=== PATIENT | female | born 1975 | race American Indian/Alaskan Native ===

== ENCOUNTER 2018-08-28 05:12 | Emergency (ER) | payer MEDICAID, OTHER, SELFPAY ==
--- NOTE | 2018-08-28 05:15 | ED.DENTAL ---
HPI - Dental/Oral General Chief complaint: Dental/Oral Stated complaint: tooth ache x1 day Time Seen by Provider: 08/28/18 05:15 Source: patient Mode of arrival: ambulatory Limitations: no limitations History of Present Illness HPI Narrative: 43-year-old insulin-dependent diabetic here for evaluation of left lower tooth pain. She states this started last evening. No known trauma. States it has continued since then. Tried ibuprofen prior to coming to arrival. Related Data Home Medications Medication Instructions Recorded Confirmed insulin glargine [Lantus U-100 135 unit SQ Q DAY #0 10/11/11 Insulin] Previous Rx's Medication Instructions Recorded hydrocodone-acetaminophen 0 tab PO Q6HP PRN #15 tab 07/03/17 clindamycin HCl 300 mg PO QID 10 Days #40 cap 08/28/18 hydrocodone-acetaminophen [[place]] 1 tab PO Q4-6H PRN #7 tab 08/28/18 Allergies Allergy/AdvReac Type Severity Reaction Status Date / Time glyburide [GLYBURIDE] Allergy Unknown Unverified 03/02/18 12:52 lisinopril [LISINOPRIL] Allergy Unknown Unverified 03/02/18 12:52 metformin [METFORMIN] Allergy Unknown Unverified 03/02/18 12:52 pseudoephedrine Allergy Unknown Unverified 03/02/18 12:52 [PSEUDOEPHEDRINE] Review of Systems Constitutional Denies fever(s) ENT Ears, Nose, Mouth, and Throat: Reports mouth pain Comments: dental pain Respiratory Denies cough Integumentary/Breasts Denies lesions and Denies rash Hematologic/Lymphatic Denies easy bleeding and Denies easy bruising [facility] Medical History Diabetes (Acute) Surgical History No pertinent past surgical history (Acute) Exam Initial Vital Signs Initial Vital Signs: Vital Signs Temperature 98.8 F 08/28/18 05:21 Pulse Rate 72 08/28/18 05:21 Respiratory Rate 18 08/28/18 05:21 Blood Pressure 180/79 H 08/28/18 05:21 Pulse Oximetry 100 08/28/18 05:21 Const General: cooperative, healthy appearing, comfortable, well developed, well groomed and No acute distress Orientation: alert, awake and oriented x3 HENMT Ears: TM normal on the left Nose: external nose normal Face and sinus: normal facial exam Mouth: oral mucosae normal, lip normal, tongue normal, oropharynx normal and No drooling Teeth and gingiva: other ( left tooth #18 fractured) Resp Effort & Inspection: normal respiratory effort Skin Lesions: no lesions Rashes: no rashes Neuro General: alert, awake and oriented x3 Psych Appearance: grossly normal and well kempt Course Vital Signs - 8 hr 08/28/18 05:21 Temperature 98.8 F Pulse Rate 72 Respiratory Rate 18 Blood Pressure 180/79 H Pulse Oximetry 100 MDM - Dental/Oral MDM Narrative Medical decision making narrative: patient with fractured tooth 18. No defined abscess seen on my exam today. I offered the patient dental injection which she declined. I did place a temporary filling. I informed the patient that this may come out. Informed her that she needed to contact her dentist to get an for definitive treatment. Will send home with antibiotics to prevent any sort of infection given her history of diabetes. Was also given pain medications. She was given return precautions. Discharge Plan Departure Patient Disposition: Home Clinical Impression: Pain, dental Instructions: DI for Dental Pain Activity Restrictions/Additional Instructions: you need to fill the prescriptions that you were given today and start taking them as directed. you need to contact your dentist tomorrow to get in for a follow-up. Return to the emergency department for any new or worsening symptoms Prescriptions: New clindamycin HCl 300 mg capsule 300 mg PO QID 10 Days Qty: 40 RF: 0 hydrocodone-acetaminophen [[place]] 5-325 mg tablet 1 tab PO Q4-6H PRN (Reason: pain) Qty: 7 RF: 0 No Action insulin glargine [Lantus U-100 Insulin] 100 UNIT/1 ML solution 135 unit SQ Q DAY Qty: 0 RF: 0 hydrocodone-acetaminophen 5 MG/325 MG tablet PO Q6HP PRNQty: 15 RF: 0
[2018-08-28 05:21] VITALS: BP 180/79; PULSE 72; RESP 18; TEMP 37.1; O2SAT 100
[2018-08-28] MEDS: HYDROCODONE/ACET 5/325 PREPACK 1 BOTTLE MISC (05:36)
== END 2018-08-28 05:39 | disposition home or self-care (01) ==
PROVIDERS: Emergency Provider Emergency Medicine
DX: K08.89 Other specified disorders of teeth and supporting structures (principal)
CPT/HCPCS: 99282

== ENCOUNTER 2019-05-25 21:16 | Emergency (ER) | payer MEDICAID, OTHER, SELFPAY ==
[2019-05-25 21:27] VITALS: BP 162/73; PULSE 96; RESP 17; TEMP 36.9; O2SAT 100
[2019-05-25] MEDS: AMOXICILLIN/CLAV 875/125 MG 1 TAB PO (21:47)
[2019-05-25 21:50] VITALS: BP 163/78; PULSE 92; RESP 17; O2SAT 97
--- NOTE | 2019-05-26 03:13 | ED_ITS ---
HPI - Ear Problem General Chief complaint: Ear Stated complaint: thinks she has an ear ache in right ear x1 day Time Seen by Provider: 05/25/19 21:20 Source: patient Mode of arrival: ambulatory Limitations: no limitations History of Present Illness HPI Narrative: 44-year-old female daily smoker, diabetic presents with 1 day of gradually worsening right ear pain. She denies runny nose, sneezing or cough. She has subjective fever. She denies nausea, vomiting. She denies any injury. She denies recent swimming. She has decreased ability to hear from that right ear. She denies any discharge, recent flights or diving. MD Complaint: ear pain Location: right ear Duration: constant Severity: moderate Relieving factors: nothing Exacerbating factors: nothing Discharge from ear: no Associated symptoms ear: fever Treatment prior to arrival: none Related Data Home Medications Medication Instructions Recorded Confirmed insulin glargine [Lantus U-100 135 unit SQ Q DAY #0 10/11/11 Insulin] Previous Rx's Medication Instructions Recorded hydrocodone-acetaminophen 0 tab PO Q6HP PRN #15 tab 07/03/17 hydrocodone-acetaminophen [[place]] 1 tab PO Q4-6H PRN #7 tab 08/28/18 amoxicillin-pot clavulanate 1 tab PO BID #20 tab 05/25/19 [Augmentin] Allergies Allergy/AdvReac Type Severity Reaction Status Date / Time glyburide [GLYBURIDE] Allergy Unknown Unverified 03/02/18 12:52 lisinopril [LISINOPRIL] Allergy Unknown Unverified 03/02/18 12:52 metformin [METFORMIN] Allergy Unknown Unverified 03/02/18 12:52 pseudoephedrine Allergy Unknown Unverified 03/02/18 12:52 [PSEUDOEPHEDRINE] Review of Systems Constitutional Reports chills, Reports fever(s), Denies lethargy and Denies weakness Eyes Denies change in vision, Denies eye discharge, Denies irritation and Denies loss of vision ENT Ears, Nose, Mouth, and Throat: Denies change in voice, Reports otalgia, Denies neck pain and Denies sore throat Cardiovascular Denies chest pain, Denies irregular heart rhythm, Denies lightheadedness, Denies palpitations, Denies dyspnea, Denies dyspnea on exertion and Denies orthopnea Respiratory Denies cough, Denies dyspnea, Denies dyspnea on exertion and Denies wheezing Gastrointestinal Gastrointestinal: Denies abdominal pain, Denies change in bowel habits, Denies diarrhea, Denies nausea and Denies vomiting Genitourinary Denies hematuria, Denies flank pain, Denies urinary incontinence and Denies urinary urgency Musculoskeletal Denies neck pain Integumentary/Breasts Denies pruritus, Denies erythema, Denies rash and Denies wounds Neurologic Denies confusion, Denies loss of vision and Denies weakness Psychiatric Denies anxiety, Denies confusion, Denies depression, Denies homicidal ideation and Denies suicidal ideation Endocrine Denies palpitations Hematologic/Lymphatic Denies easy bruising Allergic/Immunologic Denies wheezing [facility] Medical History Diabetes (Acute) Surgical History No pertinent past surgical history (Acute) Social History Smoking Status: Current every day smoker Social History Smoking Status: Current every day smoker Exam Narrative Exam Narrative: GEN: AOx3 and in mild distress, rubbing her ear, obviously uncomfortable EYES: Pupils are equal, round, and reactive to light and accommodation. Extraoccular muscles are intact bilaterally. There is no subconjunctival hemorrhage or exudate. ENT: Bilateral nares clear without drainage. Left tympanic membrane clear with normal landmarks. Right tympanic membrane with yellowish effusion and mild bulge with minimal erythema consistent with suppurative effusion CHEST: Lungs are clear to auscultation bilaterally and free of wheezes, rales, or rhonchi. Heart rate is regular rhythm, there are no murmurs, clicks, rubs, or gallops. There is no chest wall tenderness. ABD: Abdomen is soft and nontender. There is no guarding or rebound. Bowel sounds are normal in all 4 quadrants. There is no mass or organomegaly. EXT: Full painless ROM of all extremities with no loss of sensation or strength. SKIN: Warm, pink, and dry. No erythema or rash Initial Vital Signs Initial Vital Signs: Vital Signs Temperature 98.4 F 05/25/19 21:27 Pulse Rate 96 H 05/25/19 21:27 Respiratory Rate 17 05/25/19 21:27 Blood Pressure 162/73 H 05/25/19 21:27 Pulse Oximetry 100 05/25/19 21:27 Course Orders Ordered: Discontinued Medications Amoxicillin/Clavulanate Potassium (Augmentin 875-125 Mg) 1 tab PO NOW ONE Stop: 05/25/19 21:41 Last Admin: 05/25/19 21:47 Dose: 1 tab Vital Signs - 8 hr 05/25/19 21:27 05/25/19 21:50 Temperature 98.4 F Pulse Rate 96 H 92 H Respiratory Rate 17 17 Blood Pressure 163/78 H Blood Pressure [Left Arm] 162/73 H Pulse Oximetry 100 97 Discharge Plan Departure Patient Disposition: Home Clinical Impression: Otitis media Qualifiers: Otitis media type: suppurative Chronicity: acute Laterality: right Recurrence: non-recurrent Spontaneous tympanic membrane rupture: without spontaneous rupture Qualified Code(s): H66.001 - Acute suppurative otitis media without spontaneous rupture of ear drum, right ear Discharge Date/Time: 05/25/19 21:50 Interventions: ED Discharge Assessment Last Done: 05/25/19 21:50 Instructions: Middle Ear Infection Activity Restrictions/Additional Instructions: *You have been diagnosed with [acute right-sided suppurative ] *What to do: *Take medications as directed: Your antibiotics have been electronically transmitted to [facility] at your request *Follow up with your primary care provider in 2-3 days, call for an appointment. Let them know you were seen in the Emergency Department and that we ask that you be seen in follow up *Return to ER if you should have any new, worsening or concerning symptoms Prescriptions: New amoxicillin-pot clavulanate [Augmentin] 875-125 mg tablet 1 tab PO BID Qty: 20 RF: 0 No Action insulin glargine [Lantus U-100 Insulin] 100 UNIT/1 ML solution 135 unit SQ Q DAY Qty: 0 RF: 0 hydrocodone-acetaminophen 5 MG/325 MG tablet PO Q6HP PRNQty: 15 RF: 0 hydrocodone-acetaminophen [[place]] 5-325 mg tablet 1 tab PO Q4-6H PRN (Reason: pain) Qty: 7 RF: 0
== END 2019-05-25 21:50 | disposition home or self-care (01) ==
PROVIDERS: Emergency Provider Emergency Medicine
DX: H66.001 Acute suppurative otitis media without spontaneous rupture of ear drum, right ear (principal)
CPT/HCPCS: 99282; 99283

== ENCOUNTER → 2020-05-20 13:54 | Outpatient (CLI) | payer MEDICAID, OTHER, SELFPAY ==
--- NOTE | 2020-05-20 | DI.RAD.S_ITS ---
PROCEDURE: XR LUMBAR SPINE 2-3V INDICATIONS: Low back pain TECHNIQUE: 3 views of the lumbar spine were acquired. COMPARISON: None. FINDINGS: Bones: 5 [id number]-[id number] vertebrae are present. There is normal bony alignment. No vertebral body compression fractures. No suspicious bony lesions. Endplate osteophytes indicating very mild early disc degeneration, most notably at the L5-S1 level. Soft tissues: Overlying bowel gas pattern is normal. No suspicious soft tissue calcifications. IMPRESSION: Endplate osteophytes indicating early mild multilevel disc degeneration. Dictated by: Cristhian BOND Interpreted: Ashanti Ashton MD on 05/20/2020 at 17:16 Approved by: Ashanti Ashton M.D. on 05/20/2020 at 17:44
== END ==
PROVIDERS: PCP Physician Assistant; Referring Provider Physician Assistant; Visit Provider Physician Assistant
DX: M54.5 Low back pain (principal)
CPT/HCPCS: 72100

== ENCOUNTER → 2021-01-15 17:07 | Outpatient (CLI) | payer MEDICAID, OTHER, SELFPAY ==
[2021-01-15 18:37] LABS: Hemoglobin A1C% w Est Avg Glu 12.6 % (4.0-6.0)
[2021-01-15 18:48] LABS: Alanine Aminotransferase 18 IU/L (<35); Albumin 3.6 g/dL (3.5-5.0); Albumin Globulin Ratio 1.1 (1.0-2.8); Alkaline Phosphatase 102 U/L (38-126); Aspartate Aminotransferase 20 IU/L (14-36); BUN Creatinine Ratio 17.5 (6-22); Bilirubin Total 0.2 mg/dL (0.2-1.3); Blood Urea Nitrogen 11 mg/dL (7-17); Calcium 7.8 mg/dL (8.4-10.2); Carbon Dioxide 23 mmol/L (22-32); Chloride 101 mmol/L (98-107); Cholesterol 141 mg/dL (140-199); Estimated Glomerular Filt Rate > 60.0 mL/min (>60); Globulin 3.2 g/dL (1.7-4.1); Glucose 450 mg/dL (70-100); HDL Cholesterol 40 mg/dL (40-60); HEMOLYSIS < 15 (0-50); LDL Cholesterol Calculated 71 mg/dL (<100); Potassium 4.2 mmol/L (3.4-5.1); Sodium 130 mmol/L (137-145); Total Protein 6.8 g/dL (6.3-8.2); Triglycerides 152 mg/dL (35-150)
== END ==
PROVIDERS: PCP Physician Assistant; Referring Provider Family Medicine; Visit Provider Family Medicine
DX: E11.3593 Type 2 diabetes mellitus with proliferative diabetic retinopathy without macular edema, bilateral (principal)
CPT/HCPCS: 36415; 80053; 80061; 83036

== ENCOUNTER → 2021-04-11 16:43 | Outpatient (CLI) | payer MEDICAID, OTHER, SELFPAY ==
[2021-04-11 17:15] LABS: Hematocrit 27.6 % (36-46); Mean Corpuscular Hemoglobin 17.5 PG (26-34); Mean Corpuscular Volume 60.3 fL (80-100); Platelet Count 476 X10^3/uL (150-400); Red Blood Cell Count 4.57 X10^6/uL (4.0-5.2); Red Cell Distribution Width 18.8 % (11.6-14.8); White Blood Cell Count 7.6 X10^3/uL (4.5-11.0)
[2021-04-11 17:23] LABS: Hemoglobin A1C% w Est Avg Glu 10.6 % (4.0-6.0)
[2021-04-11 17:33] LABS: BUN Creatinine Ratio 24.6 (6-22); Blood Urea Nitrogen 17 mg/dL (7-17); Calcium 8.7 mg/dL (8.4-10.2); Carbon Dioxide 27 mmol/L (22-32); Chloride 104 mmol/L (98-107); Estimated Glomerular Filt Rate > 60.0 mL/min (>60); Glucose 349 mg/dL (70-100); HEMOLYSIS < 15 (0-50); Potassium 4.6 mmol/L (3.4-5.1); Sodium 134 mmol/L (137-145)
== END ==
PROVIDERS: PCP Family Medicine; Referring Provider Family Medicine; Visit Provider Family Medicine
DX: E11.3513 Type 2 diabetes mellitus with proliferative diabetic retinopathy with macular edema, bilateral (principal); I10 Essential (primary) hypertension
CPT/HCPCS: 36415; 80048; 83036; 85027

== ENCOUNTER → 2021-05-16 09:39 | Outpatient (CLI) | payer MEDICAID, OTHER, SELFPAY ==
--- NOTE | 2021-05-16 09:40 | DI.US.S_ITS ---
PROCEDURE: US PELVIC COMPLETE INDICATIONS: DUB TECHNIQUE: Real-time scanning was performed of the pelvic organs, with image documentation. Additional endovaginal scanning was necessary due to incomplete visualization of the adnexal and endometrial structures by transabdominal scanning. COMPARISON: None. FINDINGS: Uterus: The uterus is anteverted. Uterus is normal in size at 9.2 x 5.0 x 6 point cm. The endometrium measures 7.4 mm in combined thickness. Ovaries: Right ovary is not identified and cannot be evaluated. Left ovary measures 3.5 x 2.0 x 3.6 centimeters. Small functional follicles noted in the left ovary which total number less than 12. Other: No pathologic free abdominal or pelvic fluid. IMPRESSION: 1. Uterus is sonographically normal. 2. Left ovary is sonographically normal. 3. Right ovary not visualized and cannot be evaluated. Dictated by: Diana Fregoso MD, PhD on 05/16/2021 at 14:54 Approved by: Diana Fregoso MD, PhD on 05/16/2021 at 15:03
== END ==
PROVIDERS: PCP Family Medicine; Referring Provider Family Medicine; Visit Provider Family Medicine
DX: N92.4 Excessive bleeding in the premenopausal period (principal)
CPT/HCPCS: 76830; 76856

== ENCOUNTER → 2021-10-29 14:39 | Outpatient (CLI) | payer MEDICAID, OTHER, SELFPAY ==
[2021-10-29 16:03] LABS: Add Manual Diff / Slide Review NO; Basophils Absolute Auto 100 /uL (0-100); Eosinophils Absolute Auto 400 /uL (0-450); Eosinophils Percent Auto 4.2 % (2-4); Hematocrit 32.9 % (36-46); Hemoglobin 9.7 g/dL (12.0-16.0); Lymphocytes Absolute Auto 2900 /uL (1100-4500); Mean Corpuscular HGB Conc 29.5 % (30-36); Mean Corpuscular Hemoglobin 18.5 PG (26-34); Mean Corpuscular Volume 62.9 fL (80-100); Monocytes Absolute Auto 600 /uL (0-900); Monocytes Percent Auto 6.6 % (3-14); Neutrophils Absolute Auto 4900 /uL (1500-7000); Neutrophils Percent Auto 55.2 % (50-75); Platelet Count 467 X10^3/uL (150-400); Red Blood Cell Count 5.23 X10^6/uL (4.0-5.2); White Blood Cell Count 8.9 X10^3/uL (4.5-11.0)
[2021-10-29 16:32] LABS: Anisocytosis 1+; Microcytosis 2+
[2021-10-29 16:57] LABS: Alanine Aminotransferase 19 IU/L (<35); Albumin 3.9 g/dL (3.5-5.0); Albumin Globulin Ratio 1.4 (1.0-2.8); Alkaline Phosphatase 85 U/L (38-126); Aspartate Aminotransferase 20 IU/L (14-36); Bilirubin Total 0.3 mg/dL (0.2-1.3); Blood Urea Nitrogen 11 mg/dL (7-17); Carbon Dioxide 26 mmol/L (22-32); Chloride 102 mmol/L (98-107); Estimated Glomerular Filt Rate > 60.0 mL/min (>60); Globulin 2.7 g/dL (1.7-4.1); Glucose 176 mg/dL (70-100); HEMOLYSIS < 15 (0-50); Potassium 4.6 mmol/L (3.4-5.1); Sodium 137 mmol/L (137-145); Total Protein 6.6 g/dL (6.3-8.2)
[2021-10-29 17:04] LABS: NT-proBNP (BNP-Adult 18+) 54 pg/mL (<125)
[2021-10-29 17:28] LABS: TSH w/ Reflex to FT4 1.92 uIU/mL (0.47-4.68)
[2021-10-29 20:00] LABS: Microalbumin Urine Random 6.8 mg/dL (0-1.6)
[2021-10-29 20:02] LABS: Creatinine Urine Random 42.8 mg/dL; Microalbumi Creatinin Ratio Ur 158.8 ug/mg CR (<30)
== END ==
PROVIDERS: PCP Family Medicine; Referring Provider Physician Assistant; Visit Provider Physician Assistant
DX: R06.00 Dyspnea, unspecified (principal); E11.3593 Type 2 diabetes mellitus with proliferative diabetic retinopathy without macular edema, bilateral
CPT/HCPCS: 36415; 80053; 82043; 82570; 83036; 83880; 84443; 85025

== ENCOUNTER 2021-11-24 13:35 | Emergency (ER) | payer MEDICAID, OTHER, SELFPAY ==
[2021-11-24] VITALS (10 sets, daily range): BP systolic 116–160; BP diastolic 64–73; PULSE 91–106; RESP 16–28; TEMP 36.5; O2SAT 98–100; BMI 48.0
--- NOTE | 2021-11-24 13:58 | DI.RAD.S_ITS ---
PROCEDURE: XR CHEST 1V INDICATIONS: shortness of breath TECHNIQUE: One view of the chest was acquired. COMPARISON: [facility], CHEST 2 VIEW, 10/11/2011, 22:17. [facility], CHEST 1 VIEW, 04/28/2016, 14:07. FINDINGS: Surgical changes and devices: None. Lungs and pleura: An incomplete inspiratory result is noted, causing a crowded appearance to the lung markings. No focal infiltrates are seen. No pneumothorax or significant pleural effusions are seen. Mediastinum: Mediastinal contours appear normal. Heart size is normal. Bones and chest wall: No suspicious bony lesions. Overlying soft tissues appear unremarkable. IMPRESSION: Portable chest within normal limits. Dictated by: Jared Neri M.D. on 11/24/2021 at 13:37 Approved by: Jared Neri M.D. on 11/24/2021 at 13:38
[2021-11-24 15:05] LABS: Add Manual Diff / Slide Review NO; Basophils Absolute Auto 100 /uL (0-100); Basophils Percent Auto 0.9 % (0-2); Eosinophils Absolute Auto 100 /uL (0-450); Eosinophils Percent Auto 1.7 % (2-4); Hematocrit 31.5 % (36-46); Hemoglobin 9.4 g/dL (12.0-16.0); Lymphocytes Absolute Auto 1900 /uL (1100-4500); Lymphocytes Percent Auto 25.8 % (25-40); Mean Corpuscular HGB Conc 29.8 % (30-36); Mean Corpuscular Hemoglobin 18.4 PG (26-34); Mean Corpuscular Volume 61.5 fL (80-100); Monocytes Absolute Auto 800 /uL (0-900); Monocytes Percent Auto 11.5 % (3-14); Neutrophils Absolute Auto 4300 /uL (1500-7000); Neutrophils Percent Auto 60.1 % (50-75); Platelet Count 476 X10^3/uL (150-400); Red Blood Cell Count 5.11 X10^6/uL (4.0-5.2); Red Cell Distribution Width 18.2 % (11.6-14.8); White Blood Cell Count 7.2 X10^3/uL (4.5-11.0)
[2021-11-24 15:12] LABS: Creatine Kinase 47 U/L (30-135); Lactate (Lactic Acid) 0.8 mmol/L (0.7-2.1)
[2021-11-24 15:21] LABS: Alanine Aminotransferase 19 IU/L (<35); Albumin 3.6 g/dL (3.5-5.0); Albumin Globulin Ratio 1.3 (1.0-2.8); Alkaline Phosphatase 85 U/L (38-126); Aspartate Aminotransferase 27 IU/L (14-36); BUN Creatinine Ratio 15.5 (6-22); Bilirubin Total 0.2 mg/dL (0.2-1.3); Blood Urea Nitrogen 11 mg/dL (7-17); Calcium 8.3 mg/dL (8.4-10.2); Carbon Dioxide 23 mmol/L (22-32); Chloride 103 mmol/L (98-107); Estimated Glomerular Filt Rate > 60.0 mL/min (>60); Globulin 2.8 g/dL (1.7-4.1); Glucose 258 mg/dL (70-100); HEMOLYSIS < 15 (0-50); Potassium 4.4 mmol/L (3.4-5.1); Sodium 133 mmol/L (137-145); Total Protein 6.4 g/dL (6.3-8.2)
[2021-11-24 15:24] LABS: Troponin I < 0.012 ng/mL (0.01-0.034)
[2021-11-24 15:39] LABS: Anisocytosis 2+; Microcytosis 3+; Poikilocytosis 1+
[2021-11-24 15:40] LABS: Hypochromasia 1+; Polychromasia 1+; Stomatocytes 1+
[2021-11-24 16:05] LABS: Bacteria Urine None Seen; Culture Indicated Urine Cult Not Indicated; RBC Urine None Seen (0-5/HPF); WBC Urine None Seen (0-5/HPF)
[2021-11-24 16:08] LABS: COVID19 -Nasal RAPID POSITIVE (Negative)
--- NOTE | 2021-11-24 16:36 | ED.GENADULT ---
HPI - General Adult General Chief complaint: Shortness of Breath/Dyspnea Stated complaint: Trouble Breathing,Coughing,Heart Problem Time Seen by Provider: 11/24/21 16:04 Source: patient Mode of arrival: Ambulatory History of Present Illness HPI narrative: 46-year-old woman vaccinated for COVID but not yet boosted with history of diabetes, obesity and hypertension presents with 4 days of upper respiratory symptoms. This started with a scratch in the back her throat than nasal congestion than coughing and a sense that she was having difficulty breathing when lying flat. Some pleuritic-type chest pain but no palpitations. Mild nausea but no vomiting or diarrhea. No lower extremity edema. Low-grade headaches. Low-grade fevers. Related Data Home Medications Medication Instructions Recorded Confirmed insulin glargine 100 unit/mL 135 unit SQ Q DAY #0 10/11/11 subcutaneous solution (Lantus U-100 Insulin) Previous Rx's Medication Instructions Recorded hydrocodone 5 mg-acetaminophen 325 0 tab PO Q6HP PRN #15 tab 07/03/17 mg tablet hydrocodone 5 mg-acetaminophen 325 1 tab PO Q4-6H PRN #7 tab 08/28/18 mg tablet ([place]) amoxicillin 875 mg-potassium 1 tab PO BID #20 tab 05/25/19 clavulanate 125 mg tablet (Augmentin) benzonatate 100 mg capsule 100 mg PO TID PRN #20 cap 11/24/21 Allergies Allergy/AdvReac Type Severity Reaction Status Date / Time glyburide [GLYBURIDE] Allergy Unknown Unverified 03/02/18 12:52 lisinopril [LISINOPRIL] Allergy Unknown Unverified 03/02/18 12:52 metformin [METFORMIN] Allergy Unknown Unverified 03/02/18 12:52 pseudoephedrine Allergy Unknown Unverified 03/02/18 12:52 [PSEUDOEPHEDRINE] Review of Systems Review of Systems Narrative: Remainder of complete review of systems is otherwise unremarkable except for that included in the HPI. Patient History Medical History (Updated 11/24/21 @ 16:47 by Josi Sullivan MD) COVID-19 Diabetes Surgical History No pertinent past surgical history Social History Smoking Status: Current every day smoker Smoking Status: Current every day smoker Substance Use Type: does not use Exam Narrative Exam Narrative: General: Appears fatigued but n no acute distress. Able to give a complete and coherent history. Well-nourished well-developed HEENT: Moist mucous membranes, normal sclera with reactive pupils, Respiratory: Lungs are clear to auscultation, no wheezing no rales no rhonchi. Full and symmetrical air movement Cardiac: Regular rate and rhythm no murmurs no bruits Abdomen: Soft, nontender, good bowel tones, no flank pain Skin: Warm and dry, no rashes Neurologic: Grossly neurologically intact with no obvious asymmetries or abnormalities Extremities: No trauma, well perfused, no lower extremity edema Psych: Cooperative, appropriate insight and affect Initial Vital Signs Initial Vital Signs: Vital Signs Temperature 97.7 F 11/24/21 13:53 Pulse Rate 106 H 11/24/21 13:53 Respiratory Rate 20 11/24/21 13:53 Blood Pressure 116/64 11/24/21 13:53 Pulse Oximetry 98 11/24/21 13:53 Course Orders Ordered: ED Orders 11/24/21 13:58 XR chest 1V Stat Measure peak expiratory flow ONCE RT Consult Eval and Treat Now 11/24/21 14:13 EKG-12 Lead Stat 11/24/21 14:30 COVID19 -Nasal swab/Pre-Proc Stat 11/24/21 14:52 Complete Blood Count AUTO DIFF Stat Comprehensive Metabolic Panel Stat Lactate (Lactic Acid) Stat Troponin & CK Cardiac Panel Stat 11/24/21 15:30 Urine Microscopic Stat Vital Signs Vital signs: Vital Signs - 8 hr 11/24/21 13:53 11/24/21 14:07 11/24/21 14:08 Temperature 97.7 F Pulse Rate 106 H 97 H 100 H Respiratory Rate 20 28 H 28 H Blood Pressure 116/64 136/64 Pulse Oximetry 98 98 99 11/24/21 14:30 11/24/21 15:00 11/24/21 15:53 Temperature Pulse Rate 96 H 96 H 91 H Respiratory Rate 20 22 16 Blood Pressure 142/67 H Pulse Oximetry 100 98 98 11/24/21 16:00 11/24/21 16:01 Temperature Pulse Rate 94 H 93 H Respiratory Rate 24 24 Blood Pressure 160/73 H Pulse Oximetry 100 99 Medical Decision Making Lab Data Result diagrams: 11/24/21 14:52 11/24/21 14:52 Labs: Lab Results 11/24/21 11/24/21 11/24/21 Range/Units 14:30 14:52 14:52 WBC 7.2 (4.5-11.0) X10^3/uL RBC 5.11 (4.0-5.2) X10^6/uL Hgb 9.4 L (12.0-16.0) g/dL Hct 31.5 L (36-46) % MCV 61.5 L (80-100) fL MCH 18.4 L (26-34) PG MCHC 29.8 L (30-36) % RDW 18.2 H (11.6-14.8) % Plt Count 476 H (150-400) X10^3/uL Neut % (Auto) 60.1 (50-75) % Lymph % (Auto) 25.8 (25-40) % Mckenzie % (Auto) 11.5 (3-14) % Eos % (Auto) 1.7 L (2-4) % Baso % (Auto) 0.9 (0-2) % Neut # (Auto) 4300 (5261-0633) /uL Lymph # (Auto) 1900 (0355-3099) /uL Mckenzie # (Auto) 800 (0-900) /uL Eos # (Auto) 100 (0-450) /uL Baso # (Auto) 100 (0-100) /uL RBC Morphology See below Polychromasia 1+ H Hypochromasia 1+ H Poikilocytosis 1+ H Anisocytosis 2+ H Microcytosis 3+ H Stomatocytes 1+ H Sodium 133 L (137-145) mmol/L Potassium 4.4 (3.4-5.1) mmol/L Chloride 103 (98-107) mmol/L Carbon Dioxide 23 (22-32) mmol/L BUN 11 (7-17) mg/dL Creatinine 0.71 (0.52-1.04) mg/dL Estimated GFR > 60.0 (>60) mL/min BUN/Creatinine Ratio 15.5 (6-22) Glucose 258 H (70-100) mg/dL Lactate (0.7-2.1) mmol/L Calcium 8.3 L (8.4-10.2) mg/dL Total Bilirubin 0.2 (0.2-1.3) mg/dL AST 27 (14-36) IU/L ALT 19 (<35) IU/L Alkaline Phosphatase 85 (38-126) U/L Total Creatine Kinase (30-135) U/L CK-MB (CK-2) CK-MB (CK-2) Rel Index Troponin I (0.01-0.034) ng/mL Total Protein 6.4 (6.3-8.2) g/dL Albumin 3.6 (3.5-5.0) g/dL Globulin 2.8 (1.7-4.1) g/dL Albumin/Globulin Ratio 1.3 (1.0-2.8) Urine RBC (0-5/HPF) Urine WBC (0-5/HPF) Urine Bacteria (None) Ur Culture Indicated? SARS-CoV-2 (PCR) Positive H (Negative) 11/24/21 11/24/21 11/24/21 Range/Units 14:52 14:52 15:30 WBC (4.5-11.0) X10^3/uL RBC (4.0-5.2) X10^6/uL Hgb (12.0-16.0) g/dL Hct (36-46) % MCV (80-100) fL MCH (26-34) PG MCHC (30-36) % RDW (11.6-14.8) % Plt Count (150-400) X10^3/uL Neut % (Auto) (50-75) % Lymph % (Auto) (25-40) % Mckenzie % (Auto) (3-14) % Eos % (Auto) (2-4) % Baso % (Auto) (0-2) % Neut # (Auto) (3687-7703) /uL Lymph # (Auto) (0305-7434) /uL Mckenzie # (Auto) (0-900) /uL Eos # (Auto) (0-450) /uL Baso # (Auto) (0-100) /uL RBC Morphology Polychromasia Hypochromasia Poikilocytosis Anisocytosis Microcytosis Stomatocytes Sodium (137-145) mmol/L Potassium (3.4-5.1) mmol/L Chloride (98-107) mmol/L Carbon Dioxide (22-32) mmol/L BUN (7-17) mg/dL Creatinine (0.52-1.04) mg/dL Estimated GFR (>60) mL/min BUN/Creatinine Ratio (6-22) Glucose (70-100) mg/dL Lactate 0.8 (0.7-2.1) mmol/L Calcium (8.4-10.2) mg/dL Total Bilirubin (0.2-1.3) mg/dL AST (14-36) IU/L ALT (<35) IU/L Alkaline Phosphatase (38-126) U/L Total Creatine Kinase 47 (30-135) U/L CK-MB (CK-2) TNP CK-MB (CK-2) Rel Index TNP Troponin I < 0.012 (0.01-0.034) ng/mL Total Protein (6.3-8.2) g/dL Albumin (3.5-5.0) g/dL Globulin (1.7-4.1) g/dL Albumin/Globulin Ratio (1.0-2.8) Urine RBC None seen (0-5/HPF) Urine WBC None seen (0-5/HPF) Urine Bacteria None seen (None) Ur Culture Indicated? Cult not indicated SARS-CoV-2 (PCR) (Negative) Urine Dip Bedside Urine Glucose 1000 mg/dl Bedside Urine Bilirubin - Negative Bedside Urine Ketone +/- 5 Urine Specific [place] 1.015 Bedside Urine Occult Blood - Negative Bedside Urine pH 6.0 Bedside Urine Protein - Negative Bedside Urine Urobilinogen - Negative Bedside Urine Nitrite - Negative Bedside Urine Leukocytes - Negative Esterase Point of care testing: Urine Dip Bedside Urine Glucose 1000 mg/dl Bedside Urine Bilirubin - Negative Bedside Urine Ketone +/- 5 Urine Specific [place] 1.015 Bedside Urine Occult Blood - Negative Bedside Urine pH 6.0 Bedside Urine Protein - Negative Bedside Urine Urobilinogen - Negative Bedside Urine Nitrite - Negative Bedside Urine Leukocytes - Negative Esterase Imaging Data Chest x-ray: Radiologist's Impression: FINDINGS:? ? Surgical changes and devices:? None.? ? Lungs and pleura:? An incomplete inspiratory result is noted, causing a crowded appearance to the lung markings.? No focal infiltrates are seen.? No pneumothorax or significant pleural effusions are seen. ? ? Mediastinum:? Mediastinal contours appear normal.? Heart size is normal.? ? Bones and chest wall:? No suspicious bony lesions.? Overlying soft tissues appear unremarkable.? ? ? IMPRESSION:? ? Portable chest within normal limits. ? ? ? Dictated by: Jared Neri M.D. on 11/24/2021 at 13:37 ? ? ECG Data Interpretation: Sinus rhythm at a rate of 92 Slight left axis deviation Normal intervals No acute ischemic changes MDM Narrative Medical decision making narrative: 46-year-old woman vaccinated, diabetic, morbidly obese with a history of hypertension presents with 3 days of COVID symptoms and a positive COVID test. Chest x-ray does not suggest overwhelming COVID pneumonia. Saturations are 99% on room air. Blood work is reassuring she does not appear to have alternate explanations for her symptoms. Will be given a prescription for Michael Ramirez and anticipatory guidance instructions. She is safe for home discharge Discharge Plan Departure Patient Disposition: Home Clinical Impression: COVID-19 Instructions: DI for COVID-19 (Suspected or Confirmed ) Activity Restrictions/Additional Instructions: Thank you for coming in today You do have COVID Your oxygen levels are doing well. Your chest x-ray does not yet show pneumonia. Thank you for being vaccinated, that likely is the reason your symptoms are going to be more mild. Using 400 mg of ibuprofen (2 ulhl-nic-vdyhoov pills) and 1 Tylenol every 6 hours can be very helpful in controlling pain. I will give you a prescription for benzonatate tablets to help suppress the cough. Prescription was electronically transmitted to [facility] for you. Please monitor your blood sugars and if they are elevated you may need to add 10 units to your nighttime insulin If you have worsening shortness of breath or new symptoms, please return to the ER Prescriptions: New benzonatate 100 mg capsule 100 mg PO TID PRN (Reason: cough) Qty: 20 0RF No Action insulin glargine [Lantus U-100 Insulin] 100 UNIT/1 ML solution 135 unit SQ Q DAY Qty: 0 0RF hydrocodone-acetaminophen 5 MG/325 MG tablet 0 tab PO Q6HP PRNQty: 15 0RF amoxicillin-pot clavulanate [Augmentin] 875-125 mg tablet 1 tab PO BID Qty: 20 0RF hydrocodone-acetaminophen [[place]] 5-325 mg tablet 1 tab PO Q4-6H PRN (Reason: pain) Qty: 7 0RF Referrals: Carole Monroe MD [Primary Care Provider] -
[2021-11-24] MEDS: BENZONATATE 100 MG CAPSULE PO (16:58)
--- NOTE | 2021-11-24 17:02 | PC.NURSE ---
pt with no iv access. she didn't want order changed to an IM injection.
== END 2021-11-24 17:08 | disposition home or self-care (01) ==
PROVIDERS: Emergency Provider Emergency Medicine; PCP Family Medicine
DX: U07.1 COVID-19 (principal); I10 Essential (primary) hypertension; F17.200 Nicotine dependence, unspecified, uncomplicated
CPT/HCPCS: 36415; 71045; 80053; 81003; 81015; 82550; 83605; 84484; 85025; 87635; 93005; 99284; C9803

== ENCOUNTER → 2022-03-17 13:09 | Outpatient (CLI) | payer MEDICAID, OTHER, SELFPAY ==
[2022-03-17 13:59] LABS: Add Manual Diff / Slide Review NO; Basophils Absolute Auto 100 /uL (0-100); Basophils Percent Auto 1.2 % (0-2); Eosinophils Absolute Auto 200 /uL (0-450); Eosinophils Percent Auto 2.8 % (2-4); Hematocrit 39.4 % (36-46); Hemoglobin 12.1 g/dL (12.0-16.0); Lymphocytes Absolute Auto 1900 /uL (1100-4500); Lymphocytes Percent Auto 21.8 % (25-40); Mean Corpuscular HGB Conc 30.7 % (30-36); Mean Corpuscular Hemoglobin 20.4 PG (26-34); Mean Corpuscular Volume 66.5 fL (80-100); Monocytes Absolute Auto 500 /uL (0-900); Monocytes Percent Auto 6.2 % (3-14); Neutrophils Absolute Auto 6000 /uL (1500-7000); Platelet Count 465 X10^3/uL (150-400); Red Blood Cell Count 5.92 X10^6/uL (4.0-5.2); Red Cell Distribution Width 20.8 % (11.6-14.8); White Blood Cell Count 8.8 X10^3/uL (4.5-11.0)
[2022-03-17 14:05] LABS: Appearance Urine UA CLEAR; Bilirubin Urine UA NEGATIVE (NEGATIVE); Color Urine UA YELLOW; Glucose Urine UA 3+ g/dL (Negative); Ketones Urine UA 1+ (NEGATIVE); Leukocyte Esterase Urine UA TRACE (NEGATIVE); Nitrite Urine UA NEGATIVE (Negative); Occult Blood Urine UA 3+ (Negative); Protein Urine UA 1+ (Negative); Urobilinogen Urine UA 0.2 E.U./dL (0.2)
[2022-03-17 14:08] LABS: pH Urine UA 5.5 (4.5-8.0)
[2022-03-17 14:14] LABS: Bacteria Urine Few (2-10); Culture Indicated Urine Cult Not Indicated; RBC Urine >100/HPF (0-5/HPF); Squamous Epithelial Cell Urine 5-10 /HPF (0-5/HPF); WBC Urine 1-5/HPF (0-5/HPF)
[2022-03-17 14:29] LABS: Anisocytosis 1+
[2022-03-17 14:34] LABS: Alanine Aminotransferase 14 IU/L (<35); Albumin Globulin Ratio 1.2 (1.0-2.8); Alkaline Phosphatase 85 U/L (38-126); Aspartate Aminotransferase 21 IU/L (14-36); BUN Creatinine Ratio 17.9 (6-22); Bilirubin Total 0.4 mg/dL (0.2-1.3); Blood Urea Nitrogen 14 mg/dL (7-17); Calcium 8.4 mg/dL (8.4-10.2); Carbon Dioxide 22 mmol/L (22-32); Chloride 107 mmol/L (98-107); Cholesterol 194 mg/dL (140-199); Estimated Glomerular Filt Rate > 60 mL/min (>60); Globulin 3.4 g/dL (1.7-4.1); Glucose 231 mg/dL (70-100); HDL Cholesterol 36 mg/dL (40-60); HEMOLYSIS < 15 (0-50); LDL Cholesterol Calculated 126 mg/dL (<100); Potassium 4.2 mmol/L (3.4-5.1); Sodium 137 mmol/L (137-145); Total Protein 7.4 g/dL (6.3-8.2); Triglycerides 162 mg/dL (35-150)
[2022-03-17 16:55] LABS: Microalbumin Urine Random 26.4 mg/dL (0-1.6)
== END ==
PROVIDERS: PCP Family Medicine; Referring Provider Physician Assistant; Visit Provider Physician Assistant
DX: E11.3593 Type 2 diabetes mellitus with proliferative diabetic retinopathy without macular edema, bilateral (principal); I10 Essential (primary) hypertension; E78.2 Mixed hyperlipidemia
CPT/HCPCS: 36415; 80053; 80061; 81001; 82043; 82570; 83036; 85025

== ENCOUNTER 2022-07-31 10:17 | Emergency (ER) | payer MEDICAID, OTHER, SELFPAY ==
[2022-07-31 10:20] VITALS: BP 152/79; PULSE 107; RESP 24; TEMP 36.7; O2SAT 99; BMI 45.4
[2022-07-31 11:54] VITALS: PULSE 111; RESP 22
--- NOTE | 2022-07-31 11:54 | PC.NURSE ---
Patient vomiting in lobby. Brought back to room 5. Reports concerns of potentially eating bad pepperoni sticks couple days ago. Patient reports some relief after large emesis.
[2022-07-31 12:00] VITALS: PULSE 110; RESP 23; O2SAT 98
[2022-07-31 12:30] VITALS: PULSE 111; RESP 23; O2SAT 95
--- NOTE | 2022-07-31 12:48 | ED_ITS ---
HPI - Allergic Reaction General Chief complaint: Allergic Reaction Stated complaint: Reaction to meds, throat restricted Time Seen by Provider: 07/31/22 12:15 Source: patient Mode of arrival: Ambulatory History of Present Illness HPI narrative: Patient here with cousin, complains of right throat pain with chills. Started last night. Patient thought might be side effect to Ozempic, she has been on this medication for 4 weeks. She was on 25 mg weekly. However last week she took 25 mg 1 day and then another dose of 25 mg another day as instructed by her primary care provider. Yesterday he wanted her to do full dose 50 mg last night for this week. Her sugars have been ranging between 150-200. Patient states hurts to touch right side of the neck. No trouble breathing. No trouble swallowing. Related Data Home Medications Medication Instructions Recorded Confirmed insulin glargine 100 unit/mL 135 unit SQ Q DAY ##0 10/11/11 subcutaneous solution (Lantus U-100 Insulin) Previous Rx's Medication Instructions Recorded hydrocodone 5 mg-acetaminophen 325 0 tab PO Q6HP PRN #15 tabs 07/03/17 mg tablet hydrocodone 5 mg-acetaminophen 325 1 tab PO Q4-6H PRN pain #7 tabs 08/28/18 mg tablet ([place]) amoxicillin 875 mg-potassium 1 tab PO BID #20 tabs 05/25/19 clavulanate 125 mg tablet (Augmentin) benzonatate 100 mg capsule 100 mg PO TID PRN cough #20 caps 11/24/21 amoxicillin 500 mg capsule 500 mg PO BID #20 caps 07/31/22 Allergies Allergy/AdvReac Type Severity Reaction Status Date / Time glyburide [GLYBURIDE] Allergy Unknown Verified 07/31/22 10:25 lisinopril [LISINOPRIL] Allergy Unknown Verified 07/31/22 10:25 metformin [METFORMIN] Allergy Unknown Verified 07/31/22 10:25 pseudoephedrine Allergy Unknown Verified 07/31/22 10:25 [PSEUDOEPHEDRINE] Review of Systems Review of Systems Narrative: GENERAL: Positive for chills, negative for fatigue, malaise, fever, sweats. HEENT: Denies sinus pain, ear pain, positive for sore throat RESPIRATORY: Denies dyspnea, cough CARDIOVASCULAR: Denies chest pain, palpitations GASTROINTESTINAL: Denies nausea, vomiting, abdominal pain : Denies dysuria, frequency, hematuria MUSCULOSKELETAL: denies muscle or bony pain SKIN: Denies rash, skin lesions NEUROLOGIC: Denies weakness, numbness ROS Unobtainable: All systems reviewed & are unremarkable except as noted in HPI and below Patient History Medical History COVID-19 Diabetes Surgical History No pertinent past surgical history Social History Smoking Status: Former smoker Smoking Status: Former smoker Substance Use Type: does not use Exam Narrative Exam Narrative: GENERAL: in no distress, not toxic not dyspneic HEAD: Normocephalic. EYES: Pupils equal round No scleral icterus. ENT: Mucous membranes moist. Right pharynx is edematous with punctate exudates. There is tenderness to the right submandibular neck area. No fluctuance. No overlying erythema of the neck. No trismus no malocclusion. No tongue elevation. There is right and left symmetric erythema. And edema NECK: Trachea midline. CARDIOVASCULAR: Regular rate and rhythm without murmurs RESPIRATORY: Clear to auscultation. Breath sounds equal bilaterally. No wheezes, rales, or rhonchi. GASTROINTESTINAL: Abdomen soft, non-tender EXTREMITIES: No gross deformities. BACK: No flank tenderness. NEURO: AOx4. SKIN: Warm and dry PSYCH: Not anxious, is cooperative Initial Vital Signs Initial Vital Signs: Vital Signs Temperature 98.1 F 07/31/22 10:20 Pulse Rate 107 H 07/31/22 10:20 Respiratory Rate 24 07/31/22 10:20 Blood Pressure 152/79 H 07/31/22 10:20 Pulse Oximetry 99 07/31/22 10:20 Oxygen Delivery Method 07/31/22 10:20 Course Course Course Narrative: No new issues during course of stay Orders Ordered: ED Orders 07/31/22 12:51 Throat Culture Stat Discontinued Medications Amoxicillin (Amoxicillin 250 Mg Capsule) 500 mg PO NOW ONE Stop: 07/31/22 12:49 Last Admin: 07/31/22 13:02 Dose: 500 mg Documented By: [facility] Reevaluation(s) Reevaluation #1: Reviewed positive strep throat results with patient. Agrees with treatment plan and follow-up with primary care. May continue her Ozempic Time: 13:06 Vital Signs Vital signs: Vital Signs - 8 hr 07/31/22 11:54 07/31/22 12:00 07/31/22 12:30 Pulse Rate 111 H 110 H 111 H Respiratory Rate 22 23 23 Pulse Oximetry 98 95 07/31/22 13:00 Pulse Rate 112 H Respiratory Rate 22 Pulse Oximetry 95 MDM - Allergic Reaction Differential Diagnosis Differential diagnosis: Likely anaphylaxis, allergic reaction and other (Pharyngitis/tonsillar abscess) Lab Data Labs: Point of Care Testing Rapid Strep A Positive MDM Narrative Medical decision making narrative: Appropriate for discharge home. Antibiotics started here. Symptoms not likely related to her new medication. Return precautions reviewed with patient and family. She desires discharge. Tonsillar abscess was considered however symmetric appearing pharynx. Onset less than 24 hours. Patient desires discharge home. Not toxic at discharge. Discharge Plan Departure Patient Disposition: Home Clinical Impression: Strep throat Instructions: DI for Strep Throat Activity Restrictions/Additional Instructions: See family doctor in a week for re-evaluation. May continue your home medications. Prescription for amoxicillin has been provided for you. May continue Tylenol or ibuprofen for throat pain. Return if worse if any trouble breathing or any drooling or if any concerns. Return if any trouble swallowing Keep well hydrated Prescriptions: New amoxicillin 500 mg capsule 500 mg PO BID Qty: 20 0RF No Action insulin glargine [Lantus U-100 Insulin] 100 UNIT/1 ML solution 135 unit SQ Q DAY Qty: 0 hydrocodone-acetaminophen 5 MG/325 MG tablet 0 tab PO Q6HP PRNQty: 15 0RF amoxicillin-pot clavulanate [Augmentin] 875-125 mg tablet 1 tab PO BID Qty: 20 0RF benzonatate 100 mg capsule 100 mg PO TID PRN (Reason: cough) Qty: 20 0RF hydrocodone-acetaminophen [[place]] 5-325 mg tablet 1 tab PO Q4-6H PRN (Reason: pain) Qty: 7 0RF Referrals: Carole Monroe MD [Primary Care Provider] - Stand Alone Forms: Work Release Note Visit Report Forms: Patient Portal/API
[2022-07-31 13:00] VITALS: PULSE 112; RESP 22; O2SAT 95
[2022-07-31] MEDS: AMOXICILLIN 250 MG CAPSULE 500 MG PO (13:02)
== END 2022-07-31 13:13 | disposition home or self-care (01) ==
PROVIDERS: Emergency Provider Emergency Medicine; PCP Family Medicine
DX: J02.0 Streptococcal pharyngitis (principal)
CPT/HCPCS: 87070; 87077; 87147; 87880; 99283

== ENCOUNTER → 2022-09-28 13:50 | Outpatient (CLI) | payer OTHER, MEDICAID, SELFPAY ==
[2022-09-28 15:28] LABS: Add Manual Diff / Slide Review NO; Basophils Absolute Auto 100 /uL (0-100); Eosinophils Absolute Auto 200 /uL (0-450); Eosinophils Percent Auto 2.5 % (2-4); Hematocrit 45.1 % (36-46); Hemoglobin 14.8 g/dL (12.0-16.0); Lymphocytes Absolute Auto 1900 /uL (1100-4500); Lymphocytes Percent Auto 19.9 % (25-40); Mean Corpuscular HGB Conc 32.8 % (30-36); Mean Corpuscular Volume 79.3 fL (80-100); Monocytes Absolute Auto 600 /uL (0-900); Monocytes Percent Auto 6.7 % (3-14); Neutrophils Absolute Auto 6500 /uL (1500-7000); Neutrophils Percent Auto 69.9 % (50-75); Platelet Count 326 X10^3/uL (150-400); Red Blood Cell Count 5.68 X10^6/uL (4.0-5.2); Red Cell Distribution Width 15.6 % (11.6-14.8); White Blood Cell Count 9.4 X10^3/uL (4.5-11.0)
[2022-09-28 15:52] LABS: HEMOLYSIS 39 (0-50); Iron 64 ug/dL (37-170)
[2022-09-28 16:02] LABS: Percent Iron Saturation 19 % (15-50); Total Iron Binding Capacity 329 ug/dL (265-497); Transferrin 276 mg/dL (206-381)
== END ==
PROVIDERS: PCP Family Medicine; Referring Provider Registered Nurse; Visit Provider Registered Nurse
DX: E11.3593 Type 2 diabetes mellitus with proliferative diabetic retinopathy without macular edema, bilateral (principal); D75.0 Familial erythrocytosis; E61.1 Iron deficiency
CPT/HCPCS: 36415; 83540; 83550; 85025

== ENCOUNTER 2022-12-31 09:12 | Day surgery (SDC) | payer OTHER, MEDICAID, SELFPAY ==
--- NOTE | 2022-12-31 | PATH_ITS ---
[facility] Accession Number: [id number] No. of containers..01 Tissue . 01 Material submitted: . rectum - RECTAL POLYP . 01 Diagnosis: Rectal Polyp, Biopsy: Tubular adenoma. MRV 01/07/2023 1223 Local . 01 Electronically signed: . Shawnee Ashraf MD, Pathologist NPI- [id number] . 01 Gross description: . The specimen is received in formalin labeled with the patient's name, , and rectal polyp, and consists of a single irregular gray, soft tissue fragment measuring 1.3 cm in greatest dimension. Submitted entirely in cassette A1. ([id number]) /FRR 01/02/2023 1343 Local . 01 Pathologist provided ICD-10: D12.8 . 01 CPT . 617895 Specimen Comment: A courtesy copy of this report has been sent to [phone] Performed at: 01 [facility] [address] [place] [address], [place], [place] [id number] MD Partha Griffith MD Phone: [phone]
[2022-12-31] MEDS: LACTATED RINGERS 1,000 ML 150 ML IV (09:50)
[2022-12-31 09:52] VITALS: BP 120/75; PULSE 97; RESP 16; O2SAT 100; BMI 45.4
--- NOTE | 2022-12-31 10:39 | PM.HP.1 ---
History of Present Illness History of Present Illness Date Patient Seen: 12/31/22 Time Patient Seen: 10:39 Chief complaint: Screening Colonoscopy Narrative: Milla is a 47-year-old woman here for colonoscopy. She has never had 1 before. Her mother had colon cancer in her 60s. Patient History Medical History COVID-19 Diabetes Surgical History No pertinent past surgical history Family & Social History Social History: household members family Tobacco & Substance use: Smoking Status Former smoker alcohol intake former Substance Use Type does not use Meds Home Medications and Allergies Home Medications Medication Instructions Recorded Confirmed Type insulin glargine 100 unit/mL 135 unit SQ Q DAY ##0 10/11/11 12/31/22 History subcutaneous solution (Lantus U-100 Insulin) amoxicillin 875 mg-potassium 1 tab PO BID #20 tabs 05/25/19 Rx clavulanate 125 mg tablet (Augmentin) benzonatate 100 mg capsule 100 mg PO TID PRN cough #20 caps 11/24/21 Rx insulin detemir U-100 100 unit/mL 60 unit SUBCUT DAILY 12/31/22 12/31/22 History (3 mL) subcutaneous pen (Levemir FlexTouch U-100 Insulin) losartan 25 mg tablet 25 mg PO DAILY 12/31/22 12/31/22 History Allergies Allergy/AdvReac Type Severity Reaction Status Date / Time glyburide [GLYBURIDE] Allergy Unknown Verified 12/31/22 09:11 lisinopril [LISINOPRIL] Allergy Unknown Verified 12/31/22 09:11 metformin [METFORMIN] Allergy Unknown Verified 12/31/22 09:11 pseudoephedrine Allergy Unknown Verified 12/31/22 09:11 [PSEUDOEPHEDRINE] Exam Vital Signs (past 8 hours): - 12/31/22 09:52 Pulse Rate 97 H Respiratory Rate 16 Blood Pressure 120/75 Pulse Oximetry 100 Oxygen Delivery Method Room Air Oxygen Delivery Method Room Air Const Nutritional Appearance: obese Assessment & Plan Assessment and plan (1) Family history of colon cancer: Status: Acute Plan Milla is a 47-year-old woman with a family history of colon cancer here for colonoscopy today. We reviewed the risks and benefits and she would like to proceed. Time Spent With Patient Critical Care time: I spent a total of [] minutes of critical care time on this patient's care today; this time is exclusive of procedural time.
[2022-12-31 11:12] VITALS: BP 91/58; PULSE 80; RESP 14; TEMP 36.2; O2SAT 97
--- NOTE | 2022-12-31 11:13 | PM.OP.COLON ---
Operative Date/Time/Diagnoses Date of procedure: 12/31/22 Time of procedure: 11:13 Pre-op diagnosis: Family history of colon cancer Post-op diagnosis: same Procedure & Clinicians Study performed: Colonoscopy Same procedure as scheduled: Yes Surgeon: Danish Hoyt Procedure Notes Procedure in detail: Surgeon: Danish Hoyt MD Anesthesia: Dr. Lipscomb Procedure: The patient was brought to the endoscopy suite, placed in left lateral decubitus position. The patient was connected to monitoring devices. A time-out was performed. Sedation was administered. Once the patient was adequately sedated, a digital rectal exam was performed and was normal. The scope was then inserted and advanced to the cecum where the appendiceal orifice was identified and photographed. The scope was then slowly withdrawn over greater than 6 minutes. The mucosa was thoroughly inspected. There was a 7 mm polyp in the mid rectum which was removed with a cold snare. The scope was retroflexed in the rectum. No other abnormalities were seen. The scope was straightened and removed. The patient was awakened and brought to recovery. Scope withdrawal time: 10 minutes Sedation time: 18 minutes EBL: 5 mL Findings: 7 mm rectal polyp Post-procedure Disposition: PACU
[2022-12-31 11:14] VITALS: BP 105/66; PULSE 82; RESP 14; O2SAT 98
[2022-12-31 11:16] VITALS: BP 114/72; PULSE 84; RESP 15; O2SAT 99
[2022-12-31 11:22] VITALS: BP 107/69; PULSE 91; RESP 20; O2SAT 97
--- NOTE | 2022-12-31 11:22 | SUR.PHASEII ---
Patient sitting up drinking juice; denies abdominal pain or nausea. VSS.
[2022-12-31 11:26] VITALS: BP 123/83; PULSE 80; RESP 16; O2SAT 98
== END 2022-12-31 11:28 | disposition home or self-care (01) ==
PROVIDERS: PCP Family Medicine; Referring Provider Surgery; Visit Provider Surgery
PROC: 0DJD8ZZ Inspection of Lower Intestinal Tract, Via Natural or Artificial Opening Endoscopic (ICD-10-PCS; CPT 45378; principal; 2022-12-31 10:15)
DX: Z12.11 Encounter for screening for malignant neoplasm of colon (principal); Z80.0 Family history of malignant neoplasm of digestive organs; D12.8 Benign neoplasm of rectum
CPT/HCPCS: 45385

== ENCOUNTER 2023-02-16 10:59 | Emergency (ER) | payer OTHER, MEDICAID, SELFPAY ==
[2023-02-16 11:20] VITALS: BP 168/82; PULSE 82; RESP 18; TEMP 36.4; O2SAT 98; BMI 44.4
[2023-02-16 11:37] LABS: Add Manual Diff / Slide Review NO; Basophils Absolute Auto 100 /uL (0-100); Eosinophils Absolute Auto 200 /uL (0-450); Hematocrit 45.7 % (36-46); Hemoglobin 15.1 g/dL (12.0-16.0); Lymphocytes Absolute Auto 2300 /uL (1100-4500); Lymphocytes Percent Auto 28.9 % (25-40); Mean Corpuscular HGB Conc 33.1 % (30-36); Mean Corpuscular Hemoglobin 27.3 PG (26-34); Mean Corpuscular Volume 82.3 fL (80-100); Monocytes Absolute Auto 500 /uL (0-900); Monocytes Percent Auto 6.8 % (3-14); Neutrophils Absolute Auto 4800 /uL (1500-7000); Neutrophils Percent Auto 61.3 % (50-75); Platelet Count 349 X10^3/uL (150-400); Red Blood Cell Count 5.56 X10^6/uL (4.0-5.2); Red Cell Distribution Width 14.5 % (11.6-14.8); White Blood Cell Count 7.8 X10^3/uL (4.5-11.0)
--- NOTE | 2023-02-16 12:12 | ED_ITS ---
HPI - Weakness <Zuhair Monzon PA-C - Last Filed: 02/16/23 16:12> General Chief complaint: Weakness Stated complaint: N/high red blood cells/diabetic blood sugar 193 Time Seen by Provider: 02/16/23 11:59 Source: patient Mode of arrival: Wheelchair History of Present Illness HPI Narrative: This is a 47-year-old female presents to the emergency department complaining of an episode of ?total body numbness ?which has improved upon arrival. Episode was initially at 10:00 a.m., 2-1/2 hours ago. She states that the total body numbness is improving but states that if ?it feels like someone is lying on top of me?. She also reports feeling globally more weak as well as some nausea. Denies any specific chest pain, shortness of breath, vomiting, fevers, abdominal pain, or any other concerning signs or symptoms. States that she would an episode similar to this approximately 2 years ago after her primary care carmina reyna told her she was low in iron. Related Data Home Medications Medication Instructions Recorded Confirmed insulin glargine 100 unit/mL 135 unit SQ Q DAY ##0 10/11/11 12/31/22 subcutaneous solution (Lantus U-100 Insulin) insulin detemir U-100 100 unit/mL 60 unit SUBCUT DAILY 12/31/22 12/31/22 (3 mL) subcutaneous pen (Levemir FlexTouch U-100 Insulin) losartan 25 mg tablet 25 mg PO DAILY 12/31/22 12/31/22 Previous Rx's Medication Instructions Recorded amoxicillin 875 mg-potassium 1 tab PO BID #20 tabs 05/25/19 clavulanate 125 mg tablet (Augmentin) benzonatate 100 mg capsule 100 mg PO TID PRN cough #20 caps 11/24/21 Allergies Allergy/AdvReac Type Severity Reaction Status Date / Time glyburide [GLYBURIDE] Allergy Unknown Verified 12/31/22 09:11 lisinopril [LISINOPRIL] Allergy Unknown Verified 12/31/22 09:11 metformin [METFORMIN] Allergy Unknown Verified 12/31/22 09:11 pseudoephedrine Allergy Unknown Verified 12/31/22 09:11 [PSEUDOEPHEDRINE] Review of Systems <Zuhair Monzon PA-C - Last Filed: 02/16/23 16:12> Review of Systems Narrative: GENERAL: Reports weakness, Denies chills, fatigue, malaise, fever, sweats. HEENT: Denies sinus pain, ear pain, sore throat, difficulty swallowing, dizz iness. RESPIRATORY: Denies dyspnea, cough, wheezing, hemoptysis, sputum. CARDIOVASCULAR: Denies chest pain, palpitations, orthopnea, edema, GASTROINTESTINAL: Reports nausea, denies vomiting, abdominal pain, diarrhea, constipation, melena. : Denies dysuria, frequency, incontinence, hematuria, urinary retention. MUSCULOSKELETAL: denies weakness, joint pain, or bony pain SKIN: Denies rash, skin lesions, or other NEUROLOGIC: Denies weakness, headache, numbness, change in speech, confusion, seizures, incoordination. PSYCHIATRIC: No concerning psychosocial issues. 12 point review of systems is negative except for those stated above Patient History <Zuhair Monzon PA-C - Last Filed: 02/16/23 16:12> Medical History COVID-19 Diabetes Surgical History No pertinent past surgical history Social History household members: family Smoking Status: Former smoker alcohol intake: former Smoking Status: Former smoker Substance Use Type: does not use Exam <Zuhair Monzon PA-C - Last Filed: 02/16/23 16:12> Narrative Exam Narrative: GENERAL: Well-developed patient, in mild distress. HEAD: Atraumatic. Normocephalic. EYES: Pupils equal round and reactive. Extraocular motions intact. No scleral icterus. No injection or drainage. ENT: Nose without bleeding, purulent drainage. Throat without erythema, to nsillar hypertrophy or exudate. Airway patent. NECK: Trachea midline. Non tender CARDIOVASCULAR: Regular rate and rhythm without murmurs, gallops, or rubs. RESPIRATORY: Clear to auscultation. Breath sounds equal bilaterally. No wheezes, rales, or rhonchi. GASTROINTESTINAL: Abdomen soft, non-tender, nondistended. EXTREMITIES: No edema or joint tenderness. BACK: Nontender without deformity or crepitance. No flank tenderness. NEURO: AOx3. Cranial nerves 2-12 intact. No focal weakness noted on exam. SKIN: No rash or erythema of visible areas Initial Vital Signs Initial Vital Signs: Vital Signs Temperature 97.6 F 02/16/23 11:20 Pulse Rate 82 02/16/23 11:20 Respiratory Rate 18 02/16/23 11:20 Blood Pressure 168/82 H 02/16/23 11:20 Pulse Oximetry 98 02/16/23 11:20 Oxygen Delivery Method Room Air 02/16/23 11:20 <Tuyet Goins DO - Last Filed: 02/16/23 16:21> Initial Vital Signs Initial Vital Signs: Vital Signs Temperature 97.6 F 02/16/23 11:20 Pulse Rate 82 02/16/23 11:20 Respiratory Rate 18 02/16/23 11:20 Blood Pressure 168/82 H 02/16/23 11:20 Pulse Oximetry 98 02/16/23 11:20 Oxygen Delivery Method Room Air 02/16/23 11:20 Course <Zuhair Monzon PA-C - Last Filed: 02/16/23 16:12> Orders Ordered: ED Orders 02/16/23 11:17 Complete Blood Count AUTO DIFF Stat Comprehensive Metabolic Panel Stat Lipase Stat Troponin I Stat 02/16/23 12:23 EKG-12 Lead Stat Discontinued Medications Ondansetron HCl (Ondansetron 4 Mg/2 Ml Inj) 4 mg IV NOW PRN PRN Reason: Nausea And Vomiting Vital Signs Vital signs: Vital Signs - 8 hr 02/16/23 11:20 02/16/23 13:31 02/16/23 13:15 Temperature 97.6 F Pulse Rate 82 85 Respiratory Rate 18 25 H Blood Pressure 168/82 H 131/60 Pulse Oximetry 98 97 Oxygen Delivery Method Room Air <Tuyet Goins DO - Last Filed: 02/16/23 16:21> Orders Ordered: ED Orders 02/16/23 11:17 Complete Blood Count AUTO DIFF Stat Comprehensive Metabolic Panel Stat Lipase Stat Troponin I Stat 02/16/23 12:23 EKG-12 Lead Stat Discontinued Medications Ondansetron HCl (Ondansetron 4 Mg/2 Ml Inj) 4 mg IV NOW PRN PRN Reason: Nausea And Vomiting Vital Signs Vital signs: Vital Signs - 8 hr 02/16/23 11:20 02/16/23 13:31 02/16/23 13:15 Temperature 97.6 F Pulse Rate 82 85 Respiratory Rate 18 25 H Blood Pressure 168/82 H 131/60 Pulse Oximetry 98 97 Oxygen Delivery Method Room Air MDM - Weakness <Zuhair Monzon PA-C - Last Filed: 02/16/23 16:12> Lab Data 02/16/23 11:17 02/16/23 11:17 Labs: Lab Results 02/16/23 02/16/23 02/16/23 Range/Units 11:17 11:17 11:17 WBC 7.8 (4.5-11.0) X10^3/uL RBC 5.56 H (4.0-5.2) X10^6/uL Hgb 15.1 (12.0-16.0) g/dL Hct 45.7 (36-46) % MCV 82.3 (80-100) fL MCH 27.3 (26-34) PG MCHC 33.1 (30-36) % RDW 14.5 (11.6-14.8) % Plt Count 349 (150-400) X10^3/uL Neut % (Auto) 61.3 (50-75) % Lymph % (Auto) 28.9 (25-40) % [place] % (Auto) 6.8 (3-14) % Eos % (Auto) 2.0 (2-4) % Baso % (Auto) 1.0 (0-2) % Neut # (Auto) 4800 (7822-6192) /uL Lymph # (Auto) 2300 (1672-8382) /uL [place] # (Auto) 500 (0-900) /uL Eos # (Auto) 200 (0-450) /uL Baso # (Auto) 100 (0-100) /uL Sodium 136 L (137-145) mmol/L Potassium 4.2 (3.4-5.1) mmol/L Chloride 106 (98-107) mmol/L Carbon Dioxide 23 (22-32) mmol/L BUN 16 (7-17) mg/dL Creatinine 0.54 (0.52-1.04) mg/dL Estimated GFR > 60 (>60) mL/min BUN/Creatinine Ratio 29.6 H (6-22) Glucose 152 H (70-100) mg/dL Calcium 8.7 (8.4-10.2) mg/dL Total Bilirubin 0.3 (0.2-1.3) mg/dL AST 30 (14-36) IU/L ALT 18 (<35) IU/L Alkaline Phosphatase 86 (38-126) U/L Troponin I < 0.012 (0.01-0.034) ng/mL Total Protein 7.1 (6.3-8.2) g/dL Albumin 3.7 (3.5-5.0) g/dL Globulin 3.4 (1.7-4.1) g/dL Albumin/Globulin Ratio 1.1 (1.0-2.8) Lipase 224 (23-300) U/L Point of Care Testing Test Results Negative Glucose POC 142 Urine Dip Bedside Urine Glucose 1000 mg/dl Bedside Urine Bilirubin - Negative Bedside Urine Ketone - Negative Urine Specific [place] 1.015 Bedside Urine Occult Blood - Negative Bedside Urine pH 6.0 Bedside Urine Protein - Negative Bedside Urine Urobilinogen - Negative Bedside Urine Nitrite - Negative Bedside Urine Leukocytes - Negative Esterase ECG Data Interpretation: EKG is normal sinus rhythm rate 85 and free of any signs of ischemia or ectopy. No ST segmental elevation or depression. No T wave inversions. Low voltage QRS MDM Narrative Medical decision making narrative: MDM * differential diagnosis includes but not limited to hyperglycemia, DKA, acute CVA, ACS, anxiety * Prior records reviewed: Patient was seen here approximately 6 months ago due to a feeling of throat constriction where she thought she might have been a side effect of the Ozempic she is been taking. History of diabetes hypertension and obesity. Patient was eventually diagnosed with strep and given antibiotics. * My lab interpretation: Red blood cell level slightly elevated at 5.56 which appears somewhat baseline for the patient. No leukocytosis. CMP unremarkable. UA no evidence of UTI. * My imgaing interpretation: None * Clinical Decision Rules/Scores evaluated: None * Independent discussions with: None ED Course: This is a 47-year-old female presents emergency department due to vague complaints of generalized weakness. On exam she would not appear significantly weak and did not have any focal weakness. She also had a c ompletely normal neuro exam. Symptoms described giving low suspicion for TIA. Patient did state that she felt like ?somebody was lying on top of me?. Troponin EKG ordered were both within normal limits and low concern for ACS. Suspect an element of anxiety may be a factor as patient reports a similar episode like this a couple of years ago after she was told that her ?iron levels were off? by her primary care provider. All the lab work unremarkable. Recommend patient follow up with primary care for further evaluation. Offered hydroxyzine but patient declined as it ?makes me more anxious?. Shared Decision Making: Discussed plan with patient who is comfortable with the plan. Social Considerations: None Disposition: Discharged home <Tuyet Goins, DO - Last Filed: 02/16/23 16:21> Lab Data Labs: Lab Results 02/16/23 02/16/23 02/16/23 Range/Units 11:17 11:17 11:17 WBC 7.8 (4.5-11.0) X10^3/uL RBC 5.56 H (4.0-5.2) X10^6/uL Hgb 15.1 (12.0-16.0) g/dL Hct 45.7 (36-46) % MCV 82.3 (80-100) fL MCH 27.3 (26-34) PG MCHC 33.1 (30-36) % RDW 14.5 (11.6-14.8) % Plt Count 349 (150-400) X10^3/uL Neut % (Auto) 61.3 (50-75) % Lymph % (Auto) 28.9 (25-40) % [place] % (Auto) 6.8 (3-14) % Eos % (Auto) 2.0 (2-4) % Baso % (Auto) 1.0 (0-2) % Neut # (Auto) 4800 (2273-8816) /uL Lymph # (Auto) 2300 (3973-2865) /uL [place] # (Auto) 500 (0-900) /uL Eos # (Auto) 200 (0-450) /uL Baso # (Auto) 100 (0-100) /uL Sodium 136 L (137-145) mmol/L Potassium 4.2 (3.4-5.1) mmol/L Chloride 106 (98-107) mmol/L Carbon Dioxide 23 (22-32) mmol/L BUN 16 (7-17) mg/dL Creatinine 0.54 (0.52-1.04) mg/dL Estimated GFR > 60 (>60) mL/min BUN/Creatinine Ratio 29.6 H (6-22) Glucose 152 H (70-100) mg/dL Calcium 8.7 (8.4-10.2) mg/dL Total Bilirubin 0.3 (0.2-1.3) mg/dL AST 30 (14-36) IU/L ALT 18 (<35) IU/L Alkaline Phosphatase 86 (38-126) U/L Troponin I < 0.012 (0.01-0.034) ng/mL Total Protein 7.1 (6.3-8.2) g/dL Albumin 3.7 (3.5-5.0) g/dL Globulin 3.4 (1.7-4.1) g/dL Albumin/Globulin Ratio 1.1 (1.0-2.8) Lipase 224 (23-300) U/L Point of Care Testing Test Results Negative Glucose POC 142 Urine Dip Bedside Urine Glucose 1000 mg/dl Bedside Urine Bilirubin - Negative Bedside Urine Ketone - Negative Urine Specific [place] 1.015 Bedside Urine Occult Blood - Negative Bedside Urine pH 6.0 Bedside Urine Protein - Negative Bedside Urine Urobilinogen - Negative Bedside Urine Nitrite - Negative Bedside Urine Leukocytes - Negative Esterase ECG Data Interpretation: EKG is normal sinus rhythm rate 85 and free of any signs of ischemia or ectopy. No ST segmental elevation or depression. No T wave inversions. Low voltage QRS [place]: Sinus rhythm rate 85 MO 148 QRS is [address] QTC [address]. No acute ST elevation depression. Prior from 11/24/21 with no acute change. Discharge Plan Departure Patient Disposition: Home Clinical Impression: Weakness Activity Restrictions/Additional Instructions: Thank you for coming to the [facility] Emergency Department today. As we discussed your physical exam and lab work were reassuring. The EKG and lab tests be ordered to check for heart attack was normal. Your electrolytes and blood counts were also relatively normal. Your red blood cells were slightly elevated although this is similar to other lab work values you have had in the past. I recommend you speak to your primary care provider further for more in- depth lab work to evaluate the cause your weakness. Your neurologic exam was reassuring at this time I have low concern for any kind of intracranial injury. I hope you feel better soon. Prescriptions: No Action insulin glargine [Lantus U-100 Insulin] 100 UNIT/1 ML solution 135 unit SQ Q DAY Qty: 0 amoxicillin-pot clavulanate [Augmentin] 875-125 mg tablet 1 tab PO BID Qty: 20 0RF benzonatate 100 mg capsule 100 mg PO TID PRN (Reason: cough) Qty: 20 0RF losartan 25 mg tablet 25 mg PO DAILY Levemir FlexTouch U-100 Insuln 100 unit/mL (3 mL) insulin pen 60 unit SUBCUT DAILY Referrals: Carole Monroe MD [Primary Care Provider] - Stand Alone Forms: Patient Portal/API <Tuyet Goins DO - Last Filed: 02/16/23 16:21> Cosign ED Attending [place] Attestation: I was immediately available in the department for consultation.
[2023-02-16 12:16] LABS: Alanine Aminotransferase 18 IU/L (<35); Albumin 3.7 g/dL (3.5-5.0); Albumin Globulin Ratio 1.1 (1.0-2.8); Alkaline Phosphatase 86 U/L (38-126); Aspartate Aminotransferase 30 IU/L (14-36); BUN Creatinine Ratio 29.6 (6-22); Bilirubin Total 0.3 mg/dL (0.2-1.3); Blood Urea Nitrogen 16 mg/dL (7-17); Calcium 8.7 mg/dL (8.4-10.2); Carbon Dioxide 23 mmol/L (22-32); Chloride 106 mmol/L (98-107); Estimated Glomerular Filt Rate > 60 mL/min (>60); Globulin 3.4 g/dL (1.7-4.1); Glucose 152 mg/dL (70-100); HEMOLYSIS 30 (0-50); Lipase 224 U/L (23-300); Potassium 4.2 mmol/L (3.4-5.1); Sodium 136 mmol/L (137-145); Total Protein 7.1 g/dL (6.3-8.2)
[2023-02-16 12:48] LABS: Troponin I < 0.012 ng/mL (0.01-0.034)
[2023-02-16 13:15] VITALS: PULSE 85; RESP 25; O2SAT 97
[2023-02-16 13:31] VITALS: BP 131/60
== END 2023-02-16 13:51 | disposition home or self-care (01) ==
PROVIDERS: Emergency Medicine; Emergency Provider Physician Assistant Medical; PCP Family Medicine
DX: R53.1 Weakness (principal); R11.0 Nausea; R07.9 Chest pain, unspecified
CPT/HCPCS: 80053; 81003; 81025; 82962; 83690; 84484; 85025; 93005; 99282; 99284

== ENCOUNTER 2023-09-08 16:10 | Emergency (ER) | payer OTHER, SELFPAY ==
[2023-09-08 16:11] VITALS: BP 176/84; PULSE 95; RESP 16; TEMP 36.4; O2SAT 99; BMI 44.4
[2023-09-08 16:58] LABS: INR 0.9 (0.9-1.3); Prothrombin Time 10.5 SECONDS (10.1-12.7)
[2023-09-08 17:00] LABS: Add Manual Diff / Slide Review NO; Basophils Absolute Auto 100 /uL (0-100); Basophils Percent Auto 0.7 % (0-2); Eosinophils Absolute Auto 200 /uL (0-450); Eosinophils Percent Auto 1.1 % (2-4); Hematocrit 41.5 % (36-46); Hemoglobin 13.9 g/dL (12.0-16.0); Lymphocytes Absolute Auto 2000 /uL (1100-4500); Lymphocytes Percent Auto 13.7 % (25-40); Mean Corpuscular HGB Conc 33.6 % (30-36); Mean Corpuscular Hemoglobin 28.3 PG (26-34); Mean Corpuscular Volume 84.3 fL (80-100); Monocytes Absolute Auto 800 /uL (0-900); Monocytes Percent Auto 5.7 % (3-14); Neutrophils Absolute Auto 11200 /uL (1500-7000); Neutrophils Percent Auto 78.8 % (50-75); Platelet Count 389 X10^3/uL (150-400); Red Blood Cell Count 4.92 X10^6/uL (4.0-5.2); Red Cell Distribution Width 13.6 % (11.6-14.8); White Blood Cell Count 14.3 X10^3/uL (4.5-11.0)
[2023-09-08 17:21] LABS: Alanine Aminotransferase 21 IU/L (<35); Albumin 3.8 g/dL (3.5-5.0); Albumin Globulin Ratio 1.3 (1.0-2.8); Alkaline Phosphatase 87 U/L (38-126); Aspartate Aminotransferase 31 IU/L (14-36); BUN Creatinine Ratio 24.6 (6-22); Bilirubin Total 0.2 mg/dL (0.2-1.3); Blood Urea Nitrogen 14 mg/dL (7-17); Calcium 8.8 mg/dL (8.4-10.2); Carbon Dioxide 23 mmol/L (22-32); Chloride 104 mmol/L (98-107); Estimated Glomerular Filt Rate > 60 mL/min (>60); Glucose 275 mg/dL (70-100); HEMOLYSIS 30 (0-50); Potassium 4.6 mmol/L (3.4-5.1); Sodium 135 mmol/L (137-145); Total Protein 6.8 g/dL (6.3-8.2)
--- NOTE | 2023-09-08 18:12 | ED.GENADULT ---
HPI - General Adult <Milla Zuleta PA-C - Last Filed: 09/08/23 18:33> General Chief complaint: Diabetic Problem Stated complaint: Asymptomatic Diabetic Time Seen by Provider: 09/08/23 18:01 History of Present Illness HPI narrative: Patient is a 48-year-old female with diabetes who presented with concern for hypoglycemia. She took her normal medications today. Took insulin around noon and ate chicken and potatoes. Then she felt lightheaded. She checked her blood sugar and it was 84. She rechecked it and it was +/-3 points. She ate juice and snickers and came to the emergency room. She feels better now. She denies any recent fever chills, cough, sore throat, nausea vomiting, urinary symptoms. She is not a current smoker. Related Data Home Medications Medication Instructions Recorded Confirmed insulin glargine 100 unit/mL 135 unit SQ Q DAY ##0 10/11/11 12/31/22 subcutaneous solution (Lantus U-100 Insulin) insulin detemir U-100 100 unit/mL 60 unit SUBCUT DAILY 12/31/22 12/31/22 (3 mL) subcutaneous pen (Levemir FlexTouch U-100 Insulin) losartan 25 mg tablet 25 mg PO DAILY 12/31/22 12/31/22 Previous Rx's Medication Instructions Recorded amoxicillin 875 mg-potassium 1 tab PO BID #20 tabs 05/25/19 clavulanate 125 mg tablet (Augmentin) benzonatate 100 mg capsule 100 mg PO TID PRN cough #20 caps 11/24/21 Allergies Allergy/AdvReac Type Severity Reaction Status Date / Time glyburide [GLYBURIDE] Allergy Unknown Verified 12/31/22 09:11 lisinopril [LISINOPRIL] Allergy Unknown Verified 12/31/22 09:11 metformin [METFORMIN] Allergy Unknown Verified 12/31/22 09:11 pseudoephedrine Allergy Unknown Verified 12/31/22 09:11 [PSEUDOEPHEDRINE] Review of Systems <Milla Zuleta PA-C - Last Filed: 09/08/23 18:33> Review of Systems ROS Unobtainable: All systems reviewed & are unremarkable except as noted in HPI and below Patient History <Milla Zuleta PA-C - Last Filed: 09/08/23 18:33> Medical History COVID-19 Diabetes Surgical History No pertinent past surgical history Social History household members: family Smoking Status: Former smoker alcohol intake: former Smoking Status: Former smoker Substance Use Type: does not use Exam <Milla Zuleta PA-C - Last Filed: 09/08/23 18:33> Narrative Exam Narrative: GENERAL: 48 year old patient appears stated age. Well-developed patient, in no distress. NEURO: AOx3. HEAD: Atraumatic. Normocephalic. EYES: Pupils equal round and reactive. Extraocular motions intact. No scleral icterus. No injection or drainage. ENT: Nose without bleeding or purulent drainage. Airway patent. CARDIOVASCULAR: Regular rate and rhythm without murmurs, gallops, or rubs. RESPIRATORY: Clear to auscultation. Breath sounds equal bilaterally. No wheezes, rales, or rhonchi. SKIN: No rash or erythema of visible areas Initial Vital Signs Initial Vital Signs: Vital Signs Temperature 97.6 F 09/08/23 16:11 Pulse Rate 95 H 09/08/23 16:11 Respiratory Rate 16 09/08/23 16:11 Blood Pressure 176/84 H 09/08/23 16:11 Pulse Oximetry 99 09/08/23 16:11 Oxygen Delivery Method Room Air 09/08/23 16:11 <Antony Cha MD - Last Filed: 09/14/23 08:16> Initial Vital Signs Initial Vital Signs: Vital Signs Temperature 97.6 F 09/08/23 16:11 Pulse Rate 95 H 09/08/23 16:11 Respiratory Rate 16 09/08/23 16:11 Blood Pressure 176/84 H 09/08/23 16:11 Pulse Oximetry 99 09/08/23 16:11 Oxygen Delivery Method Room Air 09/08/23 16:11 Course <Milla Zuleta PA-C - Last Filed: 09/08/23 18:33> Orders Ordered: ED Orders 09/08/23 16:35 Complete Blood Count AUTO DIFF Stat Comprehensive Metabolic Panel Stat Prothrombin Time INR Stat 10/18/23 18:21 Urine Culture Stat Urine Microscopic Stat Vital Signs Vital signs: Vital Signs - 8 hr 09/08/23 16:11 Temperature 97.6 F Pulse Rate 95 H Respiratory Rate 16 Blood Pressure 176/84 H Pulse Oximetry 99 Oxygen Delivery Method Room Air <Antony Cha MD - Last Filed: 09/14/23 08:16> Orders Ordered: ED Orders 09/08/23 16:35 Complete Blood Count AUTO DIFF Stat Comprehensive Metabolic Panel Stat Prothrombin Time INR Stat 09/08/23 18:21 Urine Culture Stat Urine Microscopic Stat Vital Signs Vital signs: Vital Signs - 8 hr 09/08/23 16:11 Temperature 97.6 F Pulse Rate 95 H Respiratory Rate 16 Blood Pressure 176/84 H Pulse Oximetry 99 Oxygen Delivery Method Room Air Medical Decision Making <Milla Zuleta PA-C - Last Filed: 09/08/23 18:33> Lab Data 09/08/23 16:35 09/08/23 16:35 Labs: Lab Results 09/08/23 09/08/23 Range/Units 16:35 18:12 WBC 14.3 H (4.5-11.0) X10^3/uL RBC 4.92 (4.0-5.2) X10^6/uL Hgb 13.9 (12.0-16.0) g/dL Hct 41.5 (36-46) % MCV 84.3 (80-100) fL MCH 28.3 (26-34) PG MCHC 33.6 (30-36) % RDW 13.6 (11.6-14.8) % Plt Count 389 (150-400) X10^3/uL Neut % (Auto) 78.8 H (50-75) % Lymph % (Auto) 13.7 L (25-40) % [place] % (Auto) 5.7 (3-14) % Eos % (Auto) 1.1 L (2-4) % Baso % (Auto) 0.7 (0-2) % Neut # (Auto) 45458 H (6267-9289) /uL Lymph # (Auto) 2000 (1965-6480) /uL Atkinson # (Auto) 800 (0-900) /uL Eos # (Auto) 200 (0-450) /uL Baso # (Auto) 100 (0-100) /uL PT 10.5 (10.1-12.7) SECONDS INR 0.9 (0.9-1.3) Sodium 135 L (137-145) mmol/L Potassium 4.6 (3.4-5.1) mmol/L Chloride 104 (98-107) mmol/L Carbon Dioxide 23 (22-32) mmol/L BUN 14 (7-17) mg/dL Creatinine 0.57 (0.52-1.04) mg/dL Estimated GFR > 60 (>60) mL/min BUN/Creatinine Ratio 24.6 H (6-22) Glucose 275 H (70-100) mg/dL Calcium 8.8 (8.4-10.2) mg/dL Total Bilirubin 0.2 (0.2-1.3) mg/dL AST 31 (14-36) IU/L ALT 21 (<35) IU/L Alkaline Phosphatase 87 (38-126) U/L Total Protein 6.8 (6.3-8.2) g/dL Albumin 3.8 (3.5-5.0) g/dL Globulin 3.0 (1.7-4.1) g/dL Albumin/Globulin Ratio 1.3 (1.0-2.8) Urine RBC 0-1/hpf D (0-5/HPF) Urine WBC 0-1/hpf (0-5/HPF) Ur Squamous Epith Cells 0-1 /hpf (0-5/HPF) Urine Bacteria Few (2-10) H (None) Point of Care Testing Glucose POC 326 Urine Dip Bedside Urine Glucose 1000 mg/dl Bedside Urine Bilirubin - Negative Bedside Urine Ketone - Negative Urine Specific [place] 1.010 Bedside Urine Occult Blood + Bedside Urine pH 6.0 Bedside Urine Protein - Negative Bedside Urine Urobilinogen - Negative Bedside Urine Nitrite - Negative Bedside Urine Leukocytes - Negative Esterase Point of care testing: Point of Care Testing Glucose POC 326 Urine Dip Bedside Urine Glucose 1000 mg/dl Bedside Urine Bilirubin - Negative Bedside Urine Ketone - Negative Urine Specific [place] 1.010 Bedside Urine Occult Blood + Bedside Urine pH 6.0 Bedside Urine Protein - Negative Bedside Urine Urobilinogen - Negative Bedside Urine Nitrite - Negative Bedside Urine Leukocytes - Negative Esterase MDM Narrative Medical decision making narrative: Multiple etiologies for patient's symptoms considered including, but not limited to: Hypoglycemia, medication overdose Patient feels well after arrival to the ER and her blood sugar is now 275. She does have a leukocytosis of 14k. I will obtain a point of care urine to rule out UTI. She denies any other infectious symptoms. UA without any evidence of infection. Patient discharged with strict return precautions if she develops any concerning symptoms. continue diabetic medications as prescribed, eat low-carbohydrate diet and follow up with primary care. Patient's symptoms improved over duration of stay with above-stated therapies. Findings and discharge diagnosis discussed with patient/family followed by verbalization of understanding Return precautions discussed with patient/family whom verbalize understanding of diagnosis and plan <Antony Cha MD - Last Filed: 09/14/23 08:16> Lab Data Labs: Lab Results 09/08/23 09/08/23 Range/Units 16:35 18:12 WBC 14.3 H (4.5-11.0) X10^3/uL RBC 4.92 (4.0-5.2) X10^6/uL Hgb 13.9 (12.0-16.0) g/dL Hct 41.5 (36-46) % MCV 84.3 (80-100) fL MCH 28.3 (26-34) PG MCHC 33.6 (30-36) % RDW 13.6 (11.6-14.8) % Plt Count 389 (150-400) X10^3/uL Neut % (Auto) 78.8 H (50-75) % Lymph % (Auto) 13.7 L (25-40) % Atkinson % (Auto) 5.7 (3-14) % Eos % (Auto) 1.1 L (2-4) % Baso % (Auto) 0.7 (0-2) % Neut # (Auto) 91700 H (9984-7931) /uL Lymph # (Auto) 2000 (7447-9550) /uL Atkinson # (Auto) 800 (0-900) /uL Eos # (Auto) 200 (0-450) /uL Baso # (Auto) 100 (0-100) /uL PT 10.5 (10.1-12.7) SECONDS INR 0.9 (0.9-1.3) Sodium 135 L (137-145) mmol/L Potassium 4.6 (3.4-5.1) mmol/L Chloride 104 (98-107) mmol/L Carbon Dioxide 23 (22-32) mmol/L BUN 14 (7-17) mg/dL Creatinine 0.57 (0.52-1.04) mg/dL Estimated GFR > 60 (>60) mL/min BUN/Creatinine Ratio 24.6 H (6-22) Glucose 275 H (70-100) mg/dL Calcium 8.8 (8.4-10.2) mg/dL Total Bilirubin 0.2 (0.2-1.3) mg/dL AST 31 (14-36) IU/L ALT 21 (<35) IU/L Alkaline Phosphatase 87 (38-126) U/L Total Protein 6.8 (6.3-8.2) g/dL Albumin 3.8 (3.5-5.0) g/dL Globulin 3.0 (1.7-4.1) g/dL Albumin/Globulin Ratio 1.3 (1.0-2.8) Urine RBC 0-1/hpf D (0-5/HPF) Urine WBC 0-1/hpf (0-5/HPF) Ur Squamous Epith Cells 0-1 /hpf (0-5/HPF) Urine Bacteria Few (2-10) H (None) Point of Care Testing Glucose POC 326 Urine Dip Bedside Urine Glucose 1000 mg/dl Bedside Urine Bilirubin - Negative Bedside Urine Ketone - Negative Urine Specific [place] 1.010 Bedside Urine Occult Blood + Bedside Urine pH 6.0 Bedside Urine Protein - Negative Bedside Urine Urobilinogen - Negative Bedside Urine Nitrite - Negative Bedside Urine Leukocytes - Negative Esterase Point of care testing: Point of Care Testing Glucose POC 326 Urine Dip Bedside Urine Glucose 1000 mg/dl Bedside Urine Bilirubin - Negative Bedside Urine Ketone - Negative Urine Specific [place] 1.010 Bedside Urine Occult Blood + Bedside Urine pH 6.0 Bedside Urine Protein - Negative Bedside Urine Urobilinogen - Negative Bedside Urine Nitrite - Negative Bedside Urine Leukocytes - Negative Esterase Discharge Plan Departure Patient Disposition: Home Clinical Impression: Poorly controlled diabetes mellitus Instructions: DI for Diabetes Type 2 Activity Restrictions/Additional Instructions: *You have been diagnosed with transient low blood sugar. We also found an elevated white blood cell count on your labs today which represents infection or inflammation in your body. Since you are not having any symptoms of infection, we tested your urine for a urinary tract infection, which you do not have. I would advise that you continue to take your diabetic medications as prescribed, eat a healthy low-carbohydrate diet and continue to monitor for any symptoms of hypoglycemia. If you develop any symptoms of infection that are concerning, like shortness of breath, chest pain, fever, you can return for reassessment. *What to do: *Please continue to take your regular medications as directed. [ ] New medication prescriptions sent to your pharmacy: [ ] [ ] New medication written as a paper prescription [x ] No new medications given *Please follow up with your primary care provider in 2-3 days, call for an appointment. Let them know you were seen in the Emergency Department and that we ask that you be seen in follow up. We will electronically transmit a record of today's note if your PCP is in our system *If you do not have a primary care provider please contact the [facility] Resource line at [phone]. They will ask some questions about your medical history and help get you set up with a doctor in the community. *Return to Emergency Department if you should have any new, worsening or concerning symptoms, such as [fever greater than 101 F, shaking chills, worsening pain, persistent vomiting or other concerning symptoms]. Prescriptions: No Action insulin glargine [Lantus U-100 Insulin] 100 UNIT/1 ML solution 135 unit SQ Q DAY Qty: 0 amoxicillin-pot clavulanate [Augmentin] 875-125 mg tablet 1 tab PO BID Qty: 20 0RF benzonatate 100 mg capsule 100 mg PO TID PRN (Reason: cough) Qty: 20 0RF losartan 25 mg tablet 25 mg PO DAILY Levemir FlexTouch U100 Insulin 100 unit/mL (3 mL) insulin pen 60 unit SUBCUT DAILY Referrals: Carole Monroe MD [Primary Care Provider] - Stand Alone Forms: Patient Portal/API ED Sign-out <Antony Cha MD - Last Filed: 09/14/23 08:16> Cosign ED Attending Cosediliaature Attestation: I was immediately available in the department for consultation. ?This documentation has been reviewed and I agree with assessment and plan. Supervised by Antony Cha MD
[2023-09-08 18:31] VITALS: BP 166/79; PULSE 93; RESP 18; O2SAT 98
[2023-09-08 18:38] LABS: Bacteria Urine Few (2-10); RBC Urine 0-1/HPF (0-5/HPF); Squamous Epithelial Cell Urine 0-1 /HPF (0-5/HPF); WBC Urine 0-1/HPF (0-5/HPF)
== END 2023-09-08 18:33 | disposition home or self-care (01) ==
PROVIDERS: Emergency Medicine; Emergency Provider Physician Assistant; PCP Family Medicine
DX: E11.649 Type 2 diabetes mellitus with hypoglycemia without coma (principal); Z79.4 Long term (current) use of insulin
CPT/HCPCS: 36415; 80053; 81003; 81015; 82962; 85025; 85610; 87086; 99282; 99283

== ENCOUNTER 2023-12-20 20:00 | Emergency (ER) | payer OTHER, SELFPAY ==
[2023-12-20 20:02] VITALS: BP 202/87; PULSE 90; RESP 18; TEMP 36.1; O2SAT 98; BMI 46.4
--- NOTE | 2023-12-20 21:19 | DI.RAD.S_ITS ---
PROCEDURE: XR ACUTE ABDOMEN SERIES INDICATIONS: No BM for 4 days TECHNIQUE: One view chest and two views of the abdomen were acquired. COMPARISON: [facility], , ABDOMEN ACUTE SERIES, 01/09/2014, 16:11. FINDINGS: Surgical changes and devices: None. Chest: Lungs are clear. Heart size is normal. No pleural effusions. No pneumoperitoneum. Abdomen: Bowel gas pattern is normal. No suspicious calcifications. Visualized solid organ contours appear normal. Moderate colonic stool load. Bones: No suspicious bony lesions. IMPRESSION: No acute abnormality. Nonobstructive bowel gas pattern with a moderate colonic stool load. Dictated by: Deven Schmitt M.D. on 12/20/2023 at 21:50 Approved by: Deven Schmitt M.D. on 12/20/2023 at 21:51
[2023-12-20 22:24] VITALS: BP 145/79; PULSE 83; O2SAT 98
--- NOTE | 2023-12-20 23:39 | ED.ABDPAIN ---
HPI - Abdominal Pain General Chief Complaint: Abdominal Pain Stated Complaint: no bowel movement T-4 Time Seen by Provider: 12/20/23 23:00 Source: patient Mode of arrival: Ambulatory History of Present Illness HPI narrative: Patient is a 48-year-old female history of insulin-dependent diabetes 80s presenting today with constipation. She reports last 4 days she has had difficulty with bowel movements. She tried to have a bowel movement 4 days ago she had sharp shooting pain in her rectum and had a little bit of blood on the tissue paper. Since then she is tried to have bowel movements but continues to have direct pain in her rectum. She otherwise has absolutely no abdominal pain nausea or vomiting. She is tried prune juice and other [id number] medications without any sort of success. She continues to drink water at. She reports that she is drinking lots of water. No other symptoms Related Data Home Medications Medication Instructions Recorded Confirmed insulin glargine 100 unit/mL 135 unit SQ Q DAY ##0 10/11/11 12/31/22 subcutaneous solution (Lantus U-100 Insulin) insulin detemir U-100 100 unit/mL 60 unit SUBCUT DAILY 12/31/22 12/31/22 (3 mL) subcutaneous pen (Levemir FlexTouch U-100 Insulin) losartan 25 mg tablet 25 mg PO DAILY 12/31/22 12/31/22 Previous Rx's Medication Instructions Recorded amoxicillin 875 mg-potassium 1 tab PO BID #20 tabs 05/25/19 clavulanate 125 mg tablet (Augmentin) benzonatate 100 mg capsule 100 mg PO TID PRN cough #20 caps 11/24/21 Allergies Allergy/AdvReac Type Severity Reaction Status Date / Time glyburide [GLYBURIDE] Allergy Unknown Verified 12/31/22 09:11 lisinopril [LISINOPRIL] Allergy Unknown Verified 12/31/22 09:11 metformin [METFORMIN] Allergy Unknown Verified 12/31/22 09:11 pseudoephedrine Allergy Unknown Verified 12/31/22 09:11 [PSEUDOEPHEDRINE] Patient History Medical History COVID-19 Diabetes Surgical History No pertinent past surgical history Social History household members: family Smoking Status: Former smoker alcohol intake: former Smoking Status: Former smoker Substance Use Type: does not use Exam Initial Vital Signs Initial Vital Signs: Vital Signs Temperature 96.9 F L 12/20/23 20:02 Pulse Rate 90 12/20/23 20:02 Respiratory Rate 18 12/20/23 20:02 Blood Pressure 202/87 H 12/20/23 20:02 Pulse Oximetry 98 12/20/23 20:02 Oxygen Delivery Method Room Air 12/20/23 20:02 GENERAL: Alert pleasant 48-year-old female HEENT: Head atraumatic,EOMI, pupils reactive, face symmetric, moist mucous membranes CARDIOVASCULAR: Regular rate and rhythm without murmurs, rubs or gallops. RESPIRATORY: Breath sounds equal bilaterally, no wheezes rales or rhonchi. ABDOMEN: Soft, nontender. Normoactive bowel sounds all 4 quadrants. No guarding or rebound. RECTAL: No obvious hemorrhoid bleeding or EXTREMITIES: Normal range of motion, no clubbing or edema. Neurovascularly intact NEUROLOGICAL: Alert and oriented x4. SKIN: Warm, dry, no laceration, no petechiae, no rashes or lesions. Course Orders Ordered: ED Orders 12/20/23 21:19 XR acute abdomen series Stat 12/20/23 23:49 CBC Auto Diff [Complete Blood Count AUTO DIFF] Stat CMP [Comprehensive Metabolic Panel] Stat Lipase Stat Discontinued Medications Mineral Oil (Mineral Oil 1 Each Enema) 1 each HI NOW ONE Stop: 12/20/23 23:50 Last Admin: 12/21/23 00:37 Dose: 1 each Documented By: FARIDA Vital Signs Vital signs: Vital Signs - 8 hr 12/20/23 22:24 12/20/23 22:24 12/21/23 00:42 Pulse Rate 83 Respiratory Rate Blood Pressure 145/79 H 153/72 H Pulse Oximetry 98 Oxygen Delivery Method Room Air 12/21/23 00:42 12/21/23 00:43 12/21/23 01:00 Pulse Rate 93 H Respiratory Rate Blood Pressure 163/74 H Pulse Oximetry 98 98 Oxygen Delivery Method Room Air Room Air 12/21/23 01:31 Pulse Rate 90 Respiratory Rate 17 Blood Pressure 144/65 H Pulse Oximetry 98 Oxygen Delivery Method Room Air MDM - Abdominal Pain Lab Data 12/21/23 00:20 12/21/23 00:20 Labs: Lab Results 12/21/23 Range/Units 00:20 WBC 8.6 (4.5-11.0) X10^3/uL RBC 5.24 H (4.0-5.2) X10^6/uL Hgb 14.3 (12.0-16.0) g/dL Hct 43.2 (36-46) % MCV 82.4 (80-100) fL MCH 27.3 (26-34) PG MCHC 33.2 (30-36) % RDW 13.5 (11.6-14.8) % Plt Count 325 (150-400) X10^3/uL Neut % (Auto) 53.6 (50-75) % Lymph % (Auto) 36.6 (25-40) % Story % (Auto) 5.8 (3-14) % Eos % (Auto) 2.8 (2-4) % Baso % (Auto) 1.2 (0-2) % Neut # (Auto) 4600 (0803-3313) /uL Lymph # (Auto) 3100 (5978-5841) /uL Story # (Auto) 500 (0-900) /uL Eos # (Auto) 200 (0-450) /uL Baso # (Auto) 100 (0-100) /uL Sodium 134 L (137-145) mmol/L Potassium 3.7 (3.4-5.1) mmol/L Chloride 102 (98-107) mmol/L Carbon Dioxide 24 (22-32) mmol/L BUN 7 (7-17) mg/dL Creatinine 0.47 L (0.52-1.04) mg/dL Estimated GFR > 60 (>60) mL/min BUN/Creatinine Ratio 14.9 (6-22) Glucose 285 H (70-100) mg/dL Calcium 8.4 (8.4-10.2) mg/dL Total Bilirubin 0.4 (0.2-1.3) mg/dL AST 18 (14-36) IU/L ALT 16 (<35) IU/L Alkaline Phosphatase 84 (38-126) U/L Total Protein 6.6 (6.3-8.2) g/dL Albumin 3.6 (3.5-5.0) g/dL Globulin 3.0 (1.7-4.1) g/dL Albumin/Globulin Ratio 1.2 (1.0-2.8) Lipase 203 (23-300) U/L MDM Narrative Medical decision making narrative: Patient 48-year-old female insulin-dependent diabetic presenting today with rectal pain. She has been unable to have a proper bowel movement and has pain in her rectum no significant abdominal pain. X-ray did not show any obvious obstruction. Blood work has been reviewed. No evidence of DKA hyponatremia or other clinical significance Patient was given an enema and had great success and feels much better Discharge Plan Departure Patient Disposition: Home Clinical Impression: Constipation Instructions: DI for Constipation Activity Restrictions/Additional Instructions: *You have been diagnosed with constipation *What to do: At this time recommend that you take a stool softener daily to help prevent constipation *Continue to take medications as directed Dulcolax 100 mg 1-2 times daily as needed for constipation found [id number] *Follow up with your primary care provider in 2-3 days or call [phone] *Return to ER if you should have increasing abdominal pain nausea vomiting or any new, worsening or concerning symptoms Prescriptions: No Action insulin glargine [Lantus U-100 Insulin] 100 UNIT/1 ML solution 135 unit SQ Q DAY Qty: 0 amoxicillin-pot clavulanate [Augmentin] 875-125 mg tablet 1 tab PO BID Qty: 20 0RF benzonatate 100 mg capsule 100 mg PO TID PRN (Reason: cough) Qty: 20 0RF losartan 25 mg tablet 25 mg PO DAILY Levemir FlexTouch U100 Insulin 100 unit/mL (3 mL) insulin pen 60 unit SUBCUT DAILY Referrals: Carole Monreo MD [Primary Care Provider] - Stand Alone Forms: Patient Portal/API
[2023-12-21] MEDS: MINERAL OIL 1 EACH ENEMA PR (00:37)
[2023-12-21 00:42] VITALS: BP 153/72; PULSE 93; O2SAT 98
[2023-12-21 00:42] LABS: Add Manual Diff / Slide Review NO; Basophils Absolute Auto 100 /uL (0-100); Basophils Percent Auto 1.2 % (0-2); Eosinophils Absolute Auto 200 /uL (0-450); Eosinophils Percent Auto 2.8 % (2-4); Hematocrit 43.2 % (36-46); Hemoglobin 14.3 g/dL (12.0-16.0); Lymphocytes Absolute Auto 3100 /uL (1100-4500); Lymphocytes Percent Auto 36.6 % (25-40); Mean Corpuscular HGB Conc 33.2 % (30-36); Mean Corpuscular Hemoglobin 27.3 PG (26-34); Mean Corpuscular Volume 82.4 fL (80-100); Monocytes Absolute Auto 500 /uL (0-900); Monocytes Percent Auto 5.8 % (3-14); Neutrophils Absolute Auto 4600 /uL (1500-7000); Neutrophils Percent Auto 53.6 % (50-75); Platelet Count 325 X10^3/uL (150-400); Red Blood Cell Count 5.24 X10^6/uL (4.0-5.2); Red Cell Distribution Width 13.5 % (11.6-14.8); White Blood Cell Count 8.6 X10^3/uL (4.5-11.0)
[2023-12-21 00:43] VITALS: O2SAT 98
[2023-12-21 00:56] LABS: Alanine Aminotransferase 16 IU/L (<35); Albumin 3.6 g/dL (3.5-5.0); Albumin Globulin Ratio 1.2 (1.0-2.8); Alkaline Phosphatase 84 U/L (38-126); Aspartate Aminotransferase 18 IU/L (14-36); BUN Creatinine Ratio 14.9 (6-22); Bilirubin Total 0.4 mg/dL (0.2-1.3); Blood Urea Nitrogen 7 mg/dL (7-17); Calcium 8.4 mg/dL (8.4-10.2); Carbon Dioxide 24 mmol/L (22-32); Chloride 102 mmol/L (98-107); Estimated Glomerular Filt Rate > 60 mL/min (>60); Glucose 285 mg/dL (70-100); HEMOLYSIS < 15 (0-50); Lipase 203 U/L (23-300); Potassium 3.7 mmol/L (3.4-5.1); Sodium 134 mmol/L (137-145); Total Protein 6.6 g/dL (6.3-8.2)
[2023-12-21 01:00] VITALS: BP 163/74
[2023-12-21 01:31] VITALS: BP 144/65; PULSE 90; RESP 17; O2SAT 98
== END 2023-12-21 01:43 | disposition home or self-care (01) ==
PROVIDERS: Emergency Provider Emergency Medicine; PCP Family Medicine
DX: K59.00 Constipation, unspecified (principal)
CPT/HCPCS: 36415; 74022; 80053; 83690; 85025; 99283; 99284

== ENCOUNTER 2024-05-29 09:10 | Emergency (ER) | payer OTHER, SELFPAY ==
[2024-05-29] VITALS (17 sets, daily range): BP systolic 114–160; BP diastolic 56–70; PULSE 66–82; RESP 12–26; TEMP 36; O2SAT 95–100
--- NOTE | 2024-05-29 09:12 | EKG_ITS ---
[place] [id number] [place] [id number] Test Date: 2024-05-29 Pat Name: Milla Serra Department: Room: Gender: Female A/C Technician: ZOË : 1975 Requested By: Order Number: [id number] Reading MD: Conrado Pressley MD Measurements Intervals Cool Rate: 74 P: 23 NM: 150 QRS: -28 QRSD: 76 T: 5 QT: 430 QTc: 477 Interpretive Statements Normal sinus rhythm Minimal voltage criteria for LVH, may be normal variant ( R in aVL ) Electronically Signed On 05-29-2024 11:42:01 PDT by Conrado Pressley MD
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
[2024-05-29] MEDS: SODIUM CHLORIDE 0.9% 1,000 ML 100 ML IV (09:16)
[2024-05-29] MEDS: NALOXONE 1 MG/ML SYRINGE 2 MG IV (09:16)
[2024-05-29] MEDS: DEXTROSE 50 % IN WATER 25 GM/50 ML SYRINGE IV (09:16)
[2024-05-29 09:52] LABS: Add Manual Diff / Slide Review NO; Basophils Absolute Auto 100 /uL (0-100); Basophils Percent Auto 0.6 % (0-2); Eosinophils Absolute Auto 100 /uL (0-450); Eosinophils Percent Auto 1.3 % (2-4); Hematocrit 33.5 % (36-46); Hemoglobin 10.5 g/dL (12.0-16.0); Lymphocytes Absolute Auto 1500 /uL (1100-4500); Lymphocytes Percent Auto 13.3 % (25-40); Mean Corpuscular HGB Conc 31.3 % (30-36); Mean Corpuscular Volume 73.6 fL (80-100); Monocytes Absolute Auto 900 /uL (0-900); Neutrophils Absolute Auto 8500 /uL (1500-7000); Neutrophils Percent Auto 76.8 % (50-75); Platelet Count 366 X10^3/uL (150-400); Red Blood Cell Count 4.55 X10^6/uL (4.0-5.2); Red Cell Distribution Width 14.6 % (11.6-14.8)
[2024-05-29 09:54] LABS: Alanine Aminotransferase 15 IU/L (<35); Albumin 3.4 g/dL (3.5-5.0); Albumin Globulin Ratio 1.1 (1.0-2.8); Alkaline Phosphatase 78 U/L (38-126); Aspartate Aminotransferase 20 IU/L (14-36); BUN Creatinine Ratio 25.5 (6-22); Bilirubin Total 0.2 mg/dL (0.2-1.3); Blood Urea Nitrogen 24 mg/dL (7-17); Calcium 7.9 mg/dL (8.4-10.2); Carbon Dioxide 29 mmol/L (22-32); Chloride 103 mmol/L (98-107); Estimated Glomerular Filt Rate > 60 mL/min (>60); Ethanol (ETOH) < 10 mg/dL; Glucose 165 mg/dL (70-100); HEMOLYSIS < 15 (0-50); Lipase 152 U/L (23-300); Potassium 4.2 mmol/L (3.4-5.1); Sodium 134 mmol/L (137-145); Total Protein 6.4 g/dL (6.3-8.2)
[2024-05-29 09:56] LABS: Pregnancy Test Serum,Qual Negative (Negative)
== END 2024-05-29 11:58 | disposition home or self-care (01) ==
PROVIDERS: Emergency Provider Emergency Medicine; PCP Family Medicine
DX: E11.649 Type 2 diabetes mellitus with hypoglycemia without coma (principal); Z79.4 Long term (current) use of insulin; V48.0XXA Car driver injured in noncollision transport accident in nontraffic accident, initial encounter
CPT/HCPCS: 36415; 70450; 72125; 80053; 80320; 82962; 83690; 84703; 85025; 93005; 96374; 96375; 99284; J2310

== ENCOUNTER → 2024-05-30 15:09 | Outpatient (ROUT) | payer OTHER, SELFPAY ==
[2024-05-30 15:28] LABS: HEMOLYSIS < 15 (0-50); Iron 33 ug/dL (37-170)
[2024-05-30 15:39] LABS: Percent Iron Saturation 10 % (15-50); Total Iron Binding Capacity 345 ug/dL (265-497); Transferrin 278 mg/dL (206-381)
[2024-05-30 16:03] LABS: Ferritin 4 ng/mL (11-264)
== END ==
PROVIDERS: PCP Family Medicine; Visit Provider Family Medicine
DX: D50.9 Iron deficiency anemia, unspecified (principal)
CPT/HCPCS: 82728; 83540; 83550